=== PATIENT | female | born 1960 | race Caucasian/White ===

== ENCOUNTER 2018-12-11 15:07 | Outpatient (RCR) | payer OTHER, SELFPAY ==
--- NOTE | 2018-12-11 16:00 | PT.OIE ---
Current Diagnoses Benign paroxysmal vertigo, left ear (12/11/18) Other peripheral vertigo, left ear (12/11/18) Past Surgical History History of breast augmentation Status post colonoscopy (10/11/14) Status post colonoscopy Provider Visit Care Team Role Provider Type Toshia Tripp DO Primary Care Provider Physician Specialty: Family Practice Address: [address] [place] [id number] Email: [email or web address] Duy Ch PA-C Attending Provider Advanced Product Assembler Specialty: Medical Address: [address] [place] [address], [id number] Email: Physical Therapy Initial Evaluation PT-OP-A Visit Information Start: 12/11/18 17:27 Freq: Status: Active Protocol: Document 12/11/18 15:15 DCW (Rec: 12/12/18 08:59 DCW [id number]) Out-Patient Physical Therapy Visit Information Visit Information Visit Type Initial Evaluation Visit Start Time 15:15 Visit Stop Time 15:55 Total Visit Minutes 40 Visit Number 1 Number of RETAIL MANAGEMENT KEYHOLDER Visits 0 Evaluation Information Evaluation Date 12/11/18 PT-OP-B Current Condition Start: 12/11/18 17:27 Freq: Status: Active Protocol: Document 12/11/18 15:15 DCW (Rec: 12/12/18 08:59 DCW [id number]) Current Condition History of Current Condition Onset Date Two days Current Complaints Position-dependent vertigo History of Current Condition Pt is a 58 year old female complaining of a two day history of motion-induced vertigo. Pt reports episodes last less than a minute. Symptoms are provoked by sitting up in bed in the morning, or laying on her left side. Additionally, pt reports that at one point, she thought she may just be light -headed, because she has a history of hypotension, however when she bent forward to place her head between her knees, her symptoms became much worse, and she became nauseated and vomited. Pt reports that is was mild yesterday morning, however this morning it was so severe that she went to the walk-in clinic. Pt notes that NIDA Madsen, performed what sounds like a Laurie-Hallpike test, and reported nystagmus in the left position. Pt denies recent hearing changes, tinnitus, diplopia, dysarthria, discoordination, or decreased mentation/ consciousness. Pt denies hx of HTN, hyperlipidemia, diabetes , arrhythmia, head trauma, seizure, migraines, back/neck problems, CVA, anxiety/panic disorders, depression, or excessive smoking or drinking. Treatment Goals Patient/Caregiver Goals Eliminate position-dependent vertigo Prior Functional Status Baseline Function- ADL's Independent Baseline Function- Mobility Independent Current Functional Impairments (Reported) Functional Limitations- Other Vertigo with changes in position PT-OP-O Vestibular Start: 12/11/18 17:27 Freq: Status: Active Protocol: Document 12/11/18 15:15 DCW (Rec: 12/12/18 08:59 DCW [id number]) Vestibular Assessment Screening Tests Vestibular Artery Screen Negative Sharp-Rossana Test Negative Auditory Tests Dubose Test Negative Rinne Test Negative Air Conduction Results Equal Visual Testing Smooth Pursuits Horizontal Negative Smooth Pursuits Vertical Negative Saccades Horizontal Negative Heave Test Negative Thrust Head Negative Positional Testing Laurie-Hallpike Negative Left Negative Right Rolling Test Negative Left Negative Right Supine to Sit Negative Comments Vestibular Comments Gaze evoked nystagmus and head shake test not tested due to equipment dysfunction PT-OP-Q Treatments Start: 12/11/18 17:27 Freq: Status: Active Protocol: Document 12/11/18 15:15 DCW (Rec: 12/12/18 08:59 DCW [id number]) Canalithic Repositioning BPPV Treatment Claudia Affected Canal(s) Left posterior? Reps x1 PT-OP-T Assessment and Plan Start: 12/11/18 17:27 Freq: Status: Active Protocol: Document 12/11/18 15:15 DCW (Rec: 12/12/18 08:59 DCW [id number]) Physical Therapy Assessment Rehab Potential Rehabilitation Potential Excellent Evaluation Complexity Number of Personal Factors/Comorbidities 0 Number of Body Systems Impaired 1-2 Clinical Presentation at Evaluation Unstable Impairments Impairments Balance Vestibular Goals One Impairment Pt unable to exit bed in the morning without experiencing vertigo Short Term Goal (STG) Pt to report no vertigo with change in positions for one week STG Duration 12/26/18 Assessment Summary Assessment Pt vestibular examination entirely negative at this time . Based on pt's history and testing performed at the walk- in clinic, pt's symptoms are very strongly suggestive of left BPPV, and due to the fatigable nature of BPPV, she may just not be displaying symptoms at this time. Because her symptoms are so suggestive of BPPV, a left Claudia maneuver was performed. Pt should return to vestibular therapy within the next 1-2 weeks for retesting, and further repositioning maneuvers at that time. Pt was educated on BPPV, expectations for treatment, possible recurrence (BPPV has a ~50% recurrence rate in the five years following treatment ), and post-Claudia restrictions . Physical Therapy Plan Frequency and Duration Frequency of Treatment 1x/Week Duration of Treatment 6 weeks Plan of Care Start Date 12/11/18 Plan of Care End Date 01/22/19 Therapeutic Interventions Therapeutic Interventions Balance Training Canalithic Repositioning Neuromuscular Re-education Vestibular Rehabilitation Next Visit Focus/Plan Next Note Type Treatment Note Next Visit Plan Positional testing, CRM as indicated
--- NOTE | 2018-12-11 16:00 | PT.OPPOC ---
Current Diagnoses Benign paroxysmal vertigo, left ear (12/11/18) Other peripheral vertigo, left ear (12/11/18) Provider Visit Care Team Role Provider Type Toshia Tripp DO Primary Care Provider Physician Specialty: Family Practice Address: [address] [place] [address], [phone] Email: [email or web address] Duy Ch PA-C Attending Provider Advanced Cash Poster Specialty: Medical Address: [address] [place] [address], [id number] Email: Plan Of Care PT-OP-T Assessment and Plan Start: 12/11/18 17:27 Freq: Status: Active Protocol: Document 12/11/18 15:15 DCW (Rec: 12/12/18 08:59 DCW [id number]) Physical Therapy Assessment Rehab Potential Rehabilitation Potential Excellent Evaluation Complexity Number of Personal Factors/Comorbidities 0 Number of Body Systems Impaired 1-2 Clinical Presentation at Evaluation Unstable Impairments Impairments Balance Vestibular Goals One Impairment Pt unable to exit bed in the morning without experiencing vertigo Short Term Goal (STG) Pt to report no vertigo with change in positions for one week STG Duration 12/26/18 Assessment Summary Assessment Pt vestibular examination entirely negative at this time . Based on pt's history and testing performed at the walk- in clinic, pt's symptoms are very strongly suggestive of left BPPV, and due to the fatigable nature of BPPV, she may just not be displaying symptoms at this time. Because her symptoms are so suggestive of BPPV, a left Claudia maneuver was performed. Pt should return to vestibular therapy within the next 1-2 weeks for retesting, and further repositioning maneuvers at that time. Pt was educated on BPPV, expectations for treatment, possible recurrence (BPPV has a ~50% recurrence rate in the five years following treatment ), and post-Claudia restrictions . Physical Therapy Plan Frequency and Duration Frequency of Treatment 1x/Week Duration of Treatment 6 weeks Plan of Care Start Date 12/11/18 Plan of Care End Date 01/22/19 Therapeutic Interventions Therapeutic Interventions Balance Training Canalithic Repositioning Neuromuscular Re-education Vestibular Rehabilitation Next Visit Focus/Plan Next Note Type Treatment Note Next Visit Plan Positional testing, CRM as indicated Plan of Care Dates Plan of Care Start Date 12/11/18 Plan of Care End Date 01/22/19 Please Sign and Return: I have reviewed this Plan of Care and certify that the skilled therapy services above are required to meet the patient?s needs. Physician Signature Date Printed Name and Credentials Clinical Instructor Signature Printed Name and Credentials
--- NOTE | 2019-02-05 15:23 | PT.OPDS ---
Current Diagnoses Benign paroxysmal vertigo, left ear (12/11/18) Other peripheral vertigo, left ear (12/11/18) Provider Visit Care Team Role Provider Type Toshia Tripp DO Primary Care Provider Physician Specialty: Family Practice Address: [address] [place] [address], [phone] Email: [email or web address] Duy Ch PA-C Attending Provider Advanced Production Tester Specialty: Medical Address: [address] [place] [address], [phone] Email: Visit Number Visit Number 1 Discharge Summary PT-OP-B Current Condition Start: 12/11/18 17:27 Freq: Status: Active Protocol: Document 12/11/18 15:15 DCW (Rec: 12/12/18 08:59 DCW [id number]) Current Condition History of Current Condition Onset Date Two days Current Complaints Position-dependent vertigo History of Current Condition Pt is a 58 year old female complaining of a two day history of motion-induced vertigo. Pt reports episodes last less than a minute. Symptoms are provoked by sitting up in bed in the morning, or laying on her left side. Additionally, pt reports that at one point, she thought she may just be light -headed, because she has a history of hypotension, however when she bent forward to place her head between her knees, her symptoms became much worse, and she became nauseated and vomited. Pt reports that is was mild yesterday morning, however this morning it was so severe that she went to the walk-in clinic. Pt notes that Duy Ch, NIDA, performed what sounds like a [place]-Hallpike test, and reported nystagmus in the left position. Pt denies recent hearing changes, tinnitus, diplopia, dysarthria, discoordination, or decreased mentation/ consciousness. Pt denies hx of HTN, hyperlipidemia, diabetes , arrhythmia, head trauma, seizure, migraines, back/neck problems, CVA, anxiety/panic disorders, depression, or excessive smoking or drinking. Treatment Goals Patient/Caregiver Goals Eliminate position-dependent vertigo Prior Functional Status Baseline Function- ADL's Independent Baseline Function- Mobility Independent Current Functional Impairments (Reported) Functional Limitations- Other Vertigo with changes in position PT-OP-O Vestibular Start: 12/11/18 17:27 Freq: Status: Active Protocol: Document 12/11/18 15:15 DCW (Rec: 12/12/18 08:59 DCW [id number]) Vestibular Assessment Screening Tests Vestibular Artery Screen Negative Sharp-Rossana Test Negative Auditory Tests Dubose Test Negative Rinne Test Negative Air Conduction Results Equal Visual Testing Smooth Pursuits Horizontal Negative Smooth Pursuits Vertical Negative Saccades Horizontal Negative Heave Test Negative Thrust Head Negative Positional Testing Laurie-Hallpike Negative Left Negative Right Rolling Test Negative Left Negative Right Supine to Sit Negative Comments Vestibular Comments Gaze evoked nystagmus and head shake test not tested due to equipment dysfunction PT-OP-T Assessment and Plan Start: 12/11/18 17:27 Freq: Status: Active Protocol: Document 02/05/19 15:22 DCW (Rec: 02/05/19 15:23 DCW [id number]) Physical Therapy Assessment Goals One Impairment Pt unable to exit bed in the morning without experiencing vertigo Short Term Goal (STG) Pt to report no vertigo with change in positions for one week STG Duration 12/26/18 Assessment Summary Assessment Pt canceled all follow-up visits, stated she is feeling better and PT is no longer needed. Pt to be discharged at this time. Physical Therapy Plan Frequency and Duration Frequency of Treatment 1x/Week Duration of Treatment 6 weeks Plan of Care Start Date 12/11/18 Plan of Care End Date 01/22/19 Therapeutic Interventions Therapeutic Interventions Balance Training Canalithic Repositioning Neuromuscular Re-education Vestibular Rehabilitation Discharge Physical Therapy Discharge Reasons No Longer Attending PT Next Visit Focus/Plan Next Note Type Discharge Summary
== END 2019-02-05 15:47 | disposition home or self-care (01) ==
LOC: PHYS 15:07
PROVIDERS: PCP Family Medicine; Visit Provider Physician Assistant
DX: H81.49 Vertigo of central origin, unspecified ear (principal); H81.12 Benign paroxysmal vertigo, left ear; H81.392 Other peripheral vertigo, left ear
CPT/HCPCS: 95992; 97161

== ENCOUNTER 2024-07-16 16:48 | Inpatient (IN) | payer OTHER, SELFPAY ==
[2024-07-16] VITALS (22 sets, daily range): BP systolic 107–150; BP diastolic 56–74; PULSE 56–68; RESP 12–25; TEMP 36.7; O2SAT 93–100; BMI 25.6
--- NOTE | 2024-07-16 16:58 | EKG_ITS ---
[place] [address] [address], [place] [address] Test Date: 2024-07-16 Pat Name: Jaqueline Santiago Department: Room: Gender: Female Forklift Supervisor: [place] : 1960 Requested By: Order Number: [id number] Reading MD: Dung Chery MD Measurements Intervals [place] Rate: 68 P: 42 MS: 132 QRS: 11 QRSD: 80 T: 47 QT: 404 QTc: 429 Interpretive Statements Normal sinus rhythm Electronically Signed On 07-17-2024 7:10:35 PST by Dung Chery MD
--- NOTE | 2024-07-16 16:59 | DI.RAD.S_ITS ---
PROCEDURE: XR CHEST 1V INDICATIONS: chest pain TECHNIQUE: One view of the chest was acquired. COMPARISON: None. FINDINGS: Surgical changes and devices: None. Lungs and pleura: Lungs are clear. No pleural effusions or pneumothorax. Mediastinum: Mediastinal contours appear normal. Heart size is normal. Bones and chest wall: No suspicious bony lesions. Overlying soft tissues appear unremarkable. IMPRESSION: No acute cardiopulmonary abnormality is seen. Dictated by: Eunice Croft M.D. on 07/16/2024 at 18:01 Approved by: Eunice Croft M.D. on 07/16/2024 at 18:01
[2024-07-16] MEDS: ONDANSETRON 4 MG/2 ML INJ IV (17:19)
[2024-07-16 17:21] LABS: Prothrombin Time 11.2 SECONDS (9.4-12.5)
[2024-07-16 17:24] LABS: PTT Partial Thromboplastin Tim 37 SECONDS (25.1-36.5)
[2024-07-16 17:30] LABS: Alanine Aminotransferase 277 IU/L (<35); Albumin 4.7 g/dL (3.5-5.0); Albumin Globulin Ratio 1.5 (1.0-2.8); Alkaline Phosphatase 182 U/L (38-126); Aspartate Aminotransferase 247 IU/L (14-36); BUN Creatinine Ratio 22.8 (6-22); Bilirubin Total 0.8 mg/dL (0.2-1.3); Blood Urea Nitrogen 18 mg/dL (7-17); Calcium 9.2 mg/dL (8.4-10.2); Carbon Dioxide 30 mmol/L (22-32); Chloride 103 mmol/L (98-107); Creatine Kinase 86 U/L (30-135); Estimated Glomerular Filt Rate > 60 mL/min (>60); Globulin 3.1 g/dL (1.7-4.1); Glucose 94 mg/dL (80-110); HEMOLYSIS < 15 (0-50); Magnesium 2.1 mg/dL (1.6-2.3); Potassium 3.4 mmol/L (3.4-5.1); Sodium 140 mmol/L (137-145); Total Protein 7.8 g/dL (6.3-8.2)
[2024-07-16 17:33] LABS: Add Manual Diff / Slide Review NO; Basophils Absolute Auto 100 /uL (0-100); Basophils Percent Auto 0.4 % (0-2); Eosinophils Absolute Auto 200 /uL (0-450); Eosinophils Percent Auto 1.6 % (2-4); Hematocrit 41.4 % (36-46); Hemoglobin 13.9 g/dL (12.0-16.0); Lymphocytes Absolute Auto 3000 /uL (1100-4500); Lymphocytes Percent Auto 24.6 % (25-40); Mean Corpuscular HGB Conc 33.4 % (30-36); Mean Corpuscular Hemoglobin 29.5 PG (26-34); Mean Corpuscular Volume 88.3 fL (80-100); Monocytes Absolute Auto 600 /uL (0-900); Monocytes Percent Auto 5.3 % (3-14); Neutrophils Absolute Auto 8300 /uL (1500-7000); Neutrophils Percent Auto 68.1 % (50-75); Platelet Count 287 X10^3/uL (150-400); Red Blood Cell Count 4.69 X10^6/uL (4.0-5.2); Red Cell Distribution Width 13.8 % (11.6-14.8); White Blood Cell Count 12.1 X10^3/uL (4.5-11.0)
[2024-07-16] MEDS: ASPIRIN 81 MG CHEW TAB 324 MG PO (17:34)
[2024-07-16 17:41] LABS: NT-proBNP (BNP-Adult 18+) 35 pg/mL (<125); Troponin I < 0.012 ng/mL (0.01-0.034)
[2024-07-16 18:31] LABS: Lipase 44423 U/L (23-300)
--- NOTE | 2024-07-16 18:32 | PC.NURSE ---
iv was placed by another nurse
[2024-07-16 18:34] LABS: Urine Volume 10mL (spun)
[2024-07-16 18:35] LABS: Bacteria Urine Few (2-10); Culture Indicated Urine Specimen Cultured; RBC Urine None Seen (0-5/HPF); Squamous Epithelial Cell Urine 5-10 /HPF (0-5/HPF); WBC Urine 5-10/HPF (0-5/HPF)
--- NOTE | 2024-07-16 18:42 | DI.US.S_ITS ---
PROCEDURE: US ABDOMEN LIMITED INDICATIONS: RIGHT UPPER QUADRANT PAIN TECHNIQUE: Real-time scanning was performed of the abdominal and retroperitoneal organs, with image documentation. COMPARISON: None. FINDINGS: Liver: Liver is normal in size and homogeneous in echotexture. Gallbladder: 2 mobile stones are noted in gallbladder lumen dependent portion measures 2.4 and 1.3 cm in size. No gallbladder wall thickening. Questionable trace amount of pericholecystic fluid versus adjacent ascites fluid in gallbladder fossa. No sonographic Tena sign. Biliary ducts: Intrahepatic bile ducts are non-dilated. Extrahepatic bile duct caliber measures 8.2 mm. Normal is 6-7 mm or less in diameter, or 10 mm or less post-cholecystectomy. Pancreas: Visualized portions of the pancreas are sonographically normal. Miscellaneous: No free abdominal fluid. IMPRESSION: 1. Cholelithiasis. No definite sonographic evidence of acute cholecystitis. Questionable trace amount of pericholecystic fluid versus small amount of ascites fluid in the gallbladder fossa. 2. Mildly dilatation of common bile duct measures up to 8.2 mm in diameter. No gross choledocholithiasis. Dictated by: Tommie Obando M.D. on 07/16/2024 at 20:28 Approved by: Tommie Obando M.D. on 07/16/2024 at 20:30
--- NOTE | 2024-07-16 18:49 | ED_ITS ---
HPI - Chest Pain <Ken Samuels DO - Last Filed: 07/17/24 17:55> General Chief Complaint: Chest Pain Stated Complaint: thinks is having a heart attack Time Seen by Provider: 07/16/24 18:04 Source: patient Mode of arrival: Ambulatory Limitations: no limitations History of Present Illness HPI narrative: Patient was a 63-year-old female who is here for evaluation of upper abdominal/chest discomfort. States the symptoms started earlier this afternoon. She has had symptoms like this in the past but it was several weeks/month or so ago that was short-lived and went away on its own. She stated that she had an appointment with her new primary doctor yesterday. Had labs drawn. Was told that her liver enzymes were elevated. She denies any fever or cough. No shortness of breath. No change in bowel habits. Is having some nausea but she thinks this is because of the discomfort. She does not drink alcohol. Related Data Home Medications Medication Instructions Recorded Confirmed No Known Home Medications 07/17/24 07/17/24 Allergies Allergy/AdvReac Type Severity Reaction Status Date / Time Sulfa (Sulfonamide Allergy Severe RASH Verified 07/16/24 17:01 Antibiotics) [SULFA (SULFONAMIDE ANTIBIOTICS)] Review of Systems <Ken Samuels DO - Last Filed: 07/17/24 17:55> Review of Systems ROS Unobtainable: All systems reviewed & are unremarkable except as noted in HPI and below Patient History <Ken Samuels DO - Last Filed: 07/17/24 17:55> Medical History (Updated 07/17/24 @ 12:56 by Candelario Lewis MD) Biliary acute pancreatitis Surgical History History of breast augmentation Status post colonoscopy Status post colonoscopy (10/11/14) Social History household members: spouse Smoking Status: Never smoker Smoking Status: Never smoker Exam <Ken Samuels DO - Last Filed: 07/17/24 17:55> Initial Vital Signs Initial Vital Signs: Vital Signs Pulse Oximetry 95 07/16/24 16:56 Const General: cooperative, well developed and No ill appearing HENMT Head: normal to inspection and normocephalic Resp Effort & Inspection: normal respiratory effort Auscultation: clear to auscultation bilaterally Cardio Rate: regular rate GI Inspection: normal to inspection and non-distended Palpation: soft, No firm, No guarding and tender Skin General: no rashes or lesions noted Neuro General: patient alert, patient awake and moves all extremities Extrem General: No edema <Paigenay Valdes, DO - Last Filed: 07/17/24 13:36> Initial Vital Signs Initial Vital Signs: Vital Signs Pulse Oximetry 95 07/16/24 16:56 Course <Ken Samuels, DO - Last Filed: 07/17/24 17:55> Orders Ordered: Acetaminophen (Acetaminophen 325 Mg Tablet) 650 mg PO Q6H PRN PRN Reason: Fever/Mild Pain (1-3) Hydromorphone HCl (Hydromorphone 2 Mg Inj) 0.5 mg IV Q2HR PRN PRN Reason: Pain, Mild (1-3) Last Admin: 07/17/24 16:56 Dose: 0.5 mg Documented By: TP Sodium Chloride (Normal Saline 0.9%) 1,000 mls @ 150 mls/hr IV CONT ENEDELIA Last Infusion: 07/17/24 09:23 Dose: Infused Documented By: Admin: 07/17/24 01:35 Dose: 150 mls/hr Documented By: Infusion: 07/17/24 01:35 Dose: Infused Documented By: Admin: 07/16/24 18:56 Dose: 150 mls/hr Documented By: KjGG Sodium Chloride (Normal Saline 0.9%) 1,000 mls @ 150 mls/hr IV CONT ENEDELIA Last Admin: 07/17/24 14:06 Dose: Not Given Documented By: ESV Dextrose/Sodium Chloride (Dextrose 5%-0.9% Ns) 1,000 mls @ 100 mls/hr IV CONT ENEDELIA Last Admin: 07/17/24 14:06 Dose: 100 mls/hr Documented By: ESV Piperacillin Sod/Tazobactam (Sod 3.375 gm/ Sodium Chloride) 100 mls @ 25 mls/hr IV Q8H ENEDELIA Lactated Ringer's (Lactated Ringers) 1,000 mls @ 42 mls/hr IV CONT ENEDELIA Last Admin: 07/17/24 14:49 Dose: 42 mls/hr Documented By: CG Naloxone HCl (Naloxone 0.4 Mg/Ml Vial) 0.2 mg IV Q2MIN PRN PRN Reason: Opiate Reversal Ondansetron HCl (Ondansetron 4 Mg/2 Ml Inj) 4 mg IV Q8HR PRN PRN Reason: Nausea And Vomiting Last Admin: 07/17/24 16:52 Dose: 4 mg Documented By: TP Oxycodone HCl (Oxycodone Ir 5 Mg Tablet) 5 mg PO Q3H PRN PRN Reason: Pain, Moderate (4-6) Last Admin: 07/17/24 17:10 Dose: 5 mg Documented By: JENNIFER Discontinued Medications Acetaminophen (Acetaminophen 325 Mg Tablet) 975 mg PO NOW ONE Stop: 07/17/24 11:03 Last Admin: 07/17/24 11:10 Dose: Not Given Documented By: GLORIA Aspirin (Aspirin 81 Mg Chew Tab) 324 mg PO NOW ONE Stop: 07/16/24 17:00 Last Admin: 07/16/24 17:34 Dose: 324 mg Documented By: EDEL Bupivacaine HCl/Epinephrine Bitart (Bupivacaine 0.5% W/ Epi (Pf) 30 Ml Vial) 30 ml INJ NOW ONE Stop: 07/17/24 16:19 Hydromorphone HCl (Hydromorphone 1 Mg Inj) 1 mg IV NOW ONE Stop: 07/16/24 18:50 Last Admin: 07/16/24 18:54 Dose: 1 mg Documented By: CEDRIC Hydromorphone HCl (Hydromorphone 0.5 Mg Inj) 0.5 mg IV NOW ONE Stop: 07/16/24 21:31 Last Admin: 07/16/24 21:33 Dose: 0.5 mg Documented By: CEDRIC Hydromorphone HCl (Hydromorphone 0.5 Mg Inj) 0.5 mg IV Q2HR PRN PRN Reason: Pain, Mild (1-3) Last Admin: 07/17/24 12:13 Dose: 0.5 mg Documented By: Admin: 07/17/24 08:11 Dose: 0.5 mg Documented By: Admin: 07/17/24 03:42 Dose: 0.5 mg Documented By: Admin: 07/17/24 01:33 Dose: 0.5 mg Documented By: SHON Sodium Chloride (Normal Saline 0.9%) 1,000 mls @ 1,000 mls/hr IV BOLUS ONE Stop: 07/17/24 10:11 Last Infusion: 07/17/24 11:00 Dose: Infused Documented By: Admin: 07/17/24 09:44 Dose: 1,000 mls/hr Documented By: TC Piperacillin Sod/Tazobactam (Sod 4.5 gm/ Sodium Chloride) 100 mls @ 200 mls/hr IV NOW ONE Stop: 07/17/24 11:25 Last Infusion: 07/17/24 12:18 Dose: Infused Documented By: Admin: 07/17/24 11:40 Dose: 200 mls/hr Documented By: TC Cefazolin Sodium 1 gm/ Sodium (Chloride) 100 mls @ 200 mls/hr IV NOW ONE Stop: 07/17/24 16:22 Last Admin: 07/17/24 15:56 Dose: 200 mls/hr Documented By: Infusion: 07/17/24 15:45 Dose: Infused Documented By: Admin: 07/17/24 15:45 Dose: 200 mls/hr Documented By: Acetaminophen (Ofirmev) 1,000 mg in 100 mls @ 400 mls/hr IV NOW ONE Stop: 07/17/24 16:19 Last Admin: 07/17/24 16:00 Dose: 400 mls/hr Documented By: Iopamidol (Iopamidol 30 Ml Vial) 30 ml INJ NOW ONE Stop: 07/17/24 16:07 Last Admin: 07/17/24 16:06 Dose: 15 ml Documented By: YADI Lorazepam (Lorazepam 0.5 Mg Tablet) 1 mg PO NOW ONE Stop: 07/17/24 08:05 Ondansetron HCl (Ondansetron 4 Mg/2 Ml Inj) 4 mg IV NOW ONE Stop: 07/16/24 17:13 Last Admin: 07/16/24 17:19 Dose: 4 mg Documented By: EDEL Ondansetron HCl (Ondansetron 4 Mg/2 Ml Inj) 4 mg IV Q4HR PRN PRN Reason: Nausea And Vomiting Ondansetron HCl (Ondansetron 4 Mg/2 Ml Inj) 4 mg IV NOW ONE Stop: 07/17/24 16:49 Oxycodone HCl (Oxycodone Ir 5 Mg Tablet) 5 mg PO NOW ONE Stop: 07/17/24 16:50 Last Admin: 07/17/24 16:57 Dose: 5 mg Documented By: TP Vital Signs Vital signs: Vital Signs - 8 hr 07/17/24 10:00 07/17/24 10:05 07/17/24 10:30 Pulse Rate Blood Pressure 85/47 L 86/49 L 89/53 L Pulse Oximetry 07/17/24 11:00 07/17/24 11:05 07/17/24 11:25 Pulse Rate 64 Blood Pressure 87/50 L 93/51 L Pulse Oximetry 97 07/17/24 11:25 07/17/24 11:30 07/17/24 11:30 Pulse Rate 65 60 Blood Pressure 89/50 L Pulse Oximetry 98 97 <Paige Valdes DO - Last Filed: 07/17/24 13:36> Orders Ordered: Acetaminophen (Acetaminophen 325 Mg Tablet) 650 mg PO Q6H PRN PRN Reason: Fever/Mild Pain (1-3) Hydromorphone HCl (Hydromorphone 2 Mg Inj) 0.5 mg IV Q2HR PRN PRN Reason: Pain, Mild (1-3) Last Admin: 07/17/24 16:56 Dose: 0.5 mg Documented By: TP Sodium Chloride (Normal Saline 0.9%) 1,000 mls @ 150 mls/hr IV CONT ENEDELIA Last Infusion: 07/17/24 09:23 Dose: Infused Documented By: Admin: 07/17/24 01:35 Dose: 150 mls/hr Documented By: Infusion: 07/17/24 01:35 Dose: Infused Documented By: Admin: 07/16/24 18:56 Dose: 150 mls/hr Documented By: ZGG Sodium Chloride (Normal Saline 0.9%) 1,000 mls @ 150 mls/hr IV CONT ENEDELIA Last Admin: 07/17/24 14:06 Dose: Not Given Documented By: ESV Dextrose/Sodium Chloride (Dextrose 5%-0.9% Ns) 1,000 mls @ 100 mls/hr IV CONT ENEDELIA Last Admin: 07/17/24 14:06 Dose: 100 mls/hr Documented By: ESV Piperacillin Sod/Tazobactam (Sod 3.375 gm/ Sodium Chloride) 100 mls @ 25 mls/hr IV Q8H ENEDELIA Lactated Ringer's (Lactated Ringers) 1,000 mls @ 42 mls/hr IV CONT ENEDELIA Last Admin: 07/17/24 14:49 Dose: 42 mls/hr Documented By: MYA Naloxone HCl (Naloxone 0.4 Mg/Ml Vial) 0.2 mg IV Q2MIN PRN PRN Reason: Opiate Reversal Ondansetron HCl (Ondansetron 4 Mg/2 Ml Inj) 4 mg IV Q8HR PRN PRN Reason: Nausea And Vomiting Last Admin: 07/17/24 16:52 Dose: 4 mg Documented By: TP Oxycodone HCl (Oxycodone Ir 5 Mg Tablet) 5 mg PO Q3H PRN PRN Reason: Pain, Moderate (4-6) Last Admin: 07/17/24 17:10 Dose: 5 mg Documented By: TP Discontinued Medications Acetaminophen (Acetaminophen 325 Mg Tablet) 975 mg PO NOW ONE Stop: 07/17/24 11:03 Last Admin: 07/17/24 11:10 Dose: Not Given Documented By: GLORIA Aspirin (Aspirin 81 Mg Chew Tab) 324 mg PO NOW ONE Stop: 07/16/24 17:00 Last Admin: 07/16/24 17:34 Dose: 324 mg Documented By: EDEL Bupivacaine HCl/Epinephrine Bitart (Bupivacaine 0.5% W/ Epi (Pf) 30 Ml Vial) 30 ml INJ NOW ONE Stop: 07/17/24 16:19 Hydromorphone HCl (Hydromorphone 1 Mg Inj) 1 mg IV NOW ONE Stop: 07/16/24 18:50 Last Admin: 07/16/24 18:54 Dose: 1 mg Documented By: CEDRIC Hydromorphone HCl (Hydromorphone 0.5 Mg Inj) 0.5 mg IV NOW ONE Stop: 07/16/24 21:31 Last Admin: 07/16/24 21:33 Dose: 0.5 mg Documented By: CEDRIC Hydromorphone HCl (Hydromorphone 0.5 Mg Inj) 0.5 mg IV Q2HR PRN PRN Reason: Pain, Mild (1-3) Last Admin: 07/17/24 12:13 Dose: 0.5 mg Documented By: Admin: 07/17/24 08:11 Dose: 0.5 mg Documented By: Admin: 07/17/24 03:42 Dose: 0.5 mg Documented By: Admin: 07/17/24 01:33 Dose: 0.5 mg Documented By: SHON Sodium Chloride (Normal Saline 0.9%) 1,000 mls @ 1,000 mls/hr IV BOLUS ONE Stop: 07/17/24 10:11 Last Infusion: 07/17/24 11:00 Dose: Infused Documented By: Admin: 07/17/24 09:44 Dose: 1,000 mls/hr Documented By: GLORIA Piperacillin Sod/Tazobactam (Sod 4.5 gm/ Sodium Chloride) 100 mls @ 200 mls/hr IV NOW ONE Stop: 07/17/24 11:25 Last Infusion: 07/17/24 12:18 Dose: Infused Documented By: Admin: 07/17/24 11:40 Dose: 200 mls/hr Documented By: TC Cefazolin Sodium 1 gm/ Sodium (Chloride) 100 mls @ 200 mls/hr IV NOW ONE Stop: 07/17/24 16:22 Last Admin: 07/17/24 15:56 Dose: 200 mls/hr Documented By: Infusion: 07/17/24 15:45 Dose: Infused Documented By: Admin: 07/17/24 15:45 Dose: 200 mls/hr Documented By: AB Acetaminophen (Ofirmev) 1,000 mg in 100 mls @ 400 mls/hr IV NOW ONE Stop: 07/17/24 16:19 Last Admin: 07/17/24 16:00 Dose: 400 mls/hr Documented By: AB Iopamidol (Iopamidol 30 Ml Vial) 30 ml INJ NOW ONE Stop: 07/17/24 16:07 Last Admin: 07/17/24 16:06 Dose: 15 ml Documented By: YADI Lorazepam (Lorazepam 0.5 Mg Tablet) 1 mg PO NOW ONE Stop: 07/17/24 08:05 Ondansetron HCl (Ondansetron 4 Mg/2 Ml Inj) 4 mg IV NOW ONE Stop: 07/16/24 17:13 Last Admin: 07/16/24 17:19 Dose: 4 mg Documented By: EDEL Ondansetron HCl (Ondansetron 4 Mg/2 Ml Inj) 4 mg IV Q4HR PRN PRN Reason: Nausea And Vomiting Ondansetron HCl (Ondansetron 4 Mg/2 Ml Inj) 4 mg IV NOW ONE Stop: 07/17/24 16:49 Oxycodone HCl (Oxycodone Ir 5 Mg Tablet) 5 mg PO NOW ONE Stop: 07/17/24 16:50 Last Admin: 07/17/24 16:57 Dose: 5 mg Documented By: TP Vital Signs Vital signs: Vital Signs - 8 hr 07/17/24 10:00 07/17/24 10:05 07/17/24 10:30 Pulse Rate Blood Pressure 85/47 L 86/49 L 89/53 L Pulse Oximetry 07/17/24 11:00 07/17/24 11:05 07/17/24 11:25 Pulse Rate 64 Blood Pressure 87/50 L 93/51 L Pulse Oximetry 97 07/17/24 11:25 07/17/24 11:30 07/17/24 11:30 Pulse Rate 65 60 Blood Pressure 89/50 L Pulse Oximetry 98 97 MDM - Chest Pain <Ken Samuels DO - Last Filed: 07/17/24 17:55> Lab Data Attestation: I reviewed the patient's lab results. 07/17/24 08:00 07/17/24 08:00 Labs: Lab Results 07/16/24 07/16/24 07/16/24 Range/Units 17:05 18:18 19:14 WBC 12.1 H (4.5-11.0) X10^3/uL RBC 4.69 (4.0-5.2) X10^6/uL Hgb 13.9 (12.0-16.0) g/dL Hct 41.4 (36-46) % MCV 88.3 (80-100) fL MCH 29.5 (26-34) PG MCHC 33.4 (30-36) % RDW 13.8 (11.6-14.8) % Plt Count 287 (150-400) X10^3/uL Neut % (Auto) 68.1 (50-75) % Lymph % (Auto) 24.6 L (25-40) % Mcdonald % (Auto) 5.3 (3-14) % Eos % (Auto) 1.6 L (2-4) % Baso % (Auto) 0.4 (0-2) % Neut # (Auto) 8300 H (7014-2410) /uL Lymph # (Auto) 3000 (6677-8966) /uL Mcdonald # (Auto) 600 (0-900) /uL Eos # (Auto) 200 (0-450) /uL Baso # (Auto) 100 (0-100) /uL PT 11.2 (9.4-12.5) SECONDS INR 1.0 (0.9-1.3) APTT 37 H (25.1-36.5) SECONDS Sodium 140 (137-145) mmol/L Potassium 3.4 (3.4-5.1) mmol/L Chloride 103 (98-107) mmol/L Carbon Dioxide 30 (22-32) mmol/L BUN 18 H (7-17) mg/dL Creatinine 0.79 (0.52-1.04) mg/dL Estimated GFR > 60 (>60) mL/min BUN/Creatinine Ratio 22.8 H (6-22) Glucose 94 (80-110) mg/dL Calcium 9.2 (8.4-10.2) mg/dL Magnesium 2.1 (1.6-2.3) mg/dL Total Bilirubin 0.8 (0.2-1.3) mg/dL AST 247 H (14-36) IU/L ALT 277 H (<35) IU/L Alkaline Phosphatase 182 H (38-126) U/L Total Creatine Kinase 86 (30-135) U/L Troponin I < 0.012 (0.01-0.034) ng/mL NT-Pro-B Natriuret Pep 35 (<125) pg/mL Total Protein 7.8 (6.3-8.2) g/dL Albumin 4.7 (3.5-5.0) g/dL Globulin 3.1 (1.7-4.1) g/dL Albumin/Globulin Ratio 1.5 (1.0-2.8) Lipase 89099 H (23-300) U/L Urine RBC None seen (0-5/HPF) Urine WBC 5-10/hpf H (0-5/HPF) Ur Squamous Epith Cells 5-10 /hpf H (0-5/HPF) Urine Bacteria Few (2-10) H (None) Ur Culture Indicated? Specimen cultured Vol Urine Centrifuged 10ml (spun) Acetaminophen < 10 (10-30) ug/mL Ethyl Alcohol < 10 ( - 10) mg/dL 07/17/24 Range/Units 08:00 WBC 9.9 (4.5-11.0) X10^3/uL RBC 3.92 L (4.0-5.2) X10^6/uL Hgb 11.8 L (12.0-16.0) g/dL Hct 34.8 L (36-46) % MCV 88.6 (80-100) fL MCH 30.2 (26-34) PG MCHC 34.1 (30-36) % RDW 13.5 (11.6-14.8) % Plt Count 243 (150-400) X10^3/uL Neut % (Auto) 75.0 (50-75) % Lymph % (Auto) 18.3 L (25-40) % Mcdonald % (Auto) 5.8 (3-14) % Eos % (Auto) 0.6 L (2-4) % Baso % (Auto) 0.3 (0-2) % Neut # (Auto) 7500 H (6953-7274) /uL Lymph # (Auto) 1800 (4329-5632) /uL Mcdonald # (Auto) 600 (0-900) /uL Eos # (Auto) 100 (0-450) /uL Baso # (Auto) 0 (0-100) /uL PT (9.4-12.5) SECONDS INR (0.9-1.3) APTT (25.1-36.5) SECONDS Sodium 136 L (137-145) mmol/L Potassium 3.7 (3.4-5.1) mmol/L Chloride 109 H (98-107) mmol/L Carbon Dioxide 22 (22-32) mmol/L BUN 14 (7-17) mg/dL Creatinine 0.62 (0.52-1.04) mg/dL Estimated GFR > 60 (>60) mL/min BUN/Creatinine Ratio 22.6 H (6-22) Glucose 98 (80-110) mg/dL Calcium 8.3 L (8.4-10.2) mg/dL Magnesium (1.6-2.3) mg/dL Total Bilirubin 0.9 (0.2-1.3) mg/dL AST 180 H (14-36) IU/L ALT 300 H (<35) IU/L Alkaline Phosphatase 161 H (38-126) U/L Total Creatine Kinase (30-135) U/L Troponin I (0.01-0.034) ng/mL NT-Pro-B Natriuret Pep (<125) pg/mL Total Protein 6.1 L (6.3-8.2) g/dL Albumin 3.7 (3.5-5.0) g/dL Globulin 2.4 (1.7-4.1) g/dL Albumin/Globulin Ratio 1.5 (1.0-2.8) Lipase 8838 H D (23-300) U/L Urine RBC (0-5/HPF) Urine WBC (0-5/HPF) Ur Squamous Epith Cells (0-5/HPF) Urine Bacteria (None) Ur Culture Indicated? Vol Urine Centrifuged Acetaminophen (10-30) ug/mL Ethyl Alcohol ( - 10) mg/dL Urine Dip Bedside Urine Glucose Negative Bedside Urine Bilirubin - Negative Bedside Urine Ketone - Negative Urine Specific Beeler 1.005 Bedside Urine Occult Blood - Negative Bedside Urine pH 7.0 Bedside Urine Protein - Negative Bedside Urine Urobilinogen - Negative Bedside Urine Nitrite - Negative Bedside Urine Leukocytes +++ 500 Esterase Imaging Data Chest x-ray: Radiologist's Impression: PROCEDURE: XR CHEST 1V INDICATIONS: chest pain TECHNIQUE: One view of the chest was acquired. COMPARISON: None. FINDINGS: Surgical changes and devices: None. Lungs and pleura: Lungs are clear. No pleural effusions or pneumothorax. Mediastinum: Mediastinal contours appear normal. Heart size is normal. Bones and chest wall: No suspicious bony lesions. Overlying soft tissues appear unremarkable. IMPRESSION: No acute cardiopulmonary abnormality is seen. US - abdomen: Radiologist's Impression: PROCEDURE: US ABDOMEN LIMITED INDICATIONS: RIGHT UPPER QUADRANT PAIN TECHNIQUE: Real-time scanning was performed of the abdominal and retroperitoneal organs, with image documentation. COMPARISON: None. FINDINGS: Liver: Liver is normal in size and homogeneous in echotexture. Gallbladder: 2 mobile stones are noted in gallbladder lumen dependent portion measures 2.4 and 1.3 cm in size. No gallbladder wall thickening. Questionable trace amount of pericholecystic fluid versus adjacent ascites fluid in gallbladder fossa. No sonographic Tena sign. Biliary ducts: Intrahepatic bile ducts are non-dilated. Extrahepatic bile duct caliber measures 8.2 mm. Normal is 6-7 mm or less in diameter, or 10 mm or less post-cholecystectomy. Pancreas: Visualized portions of the pancreas are sonographically normal. Miscellaneous: No free abdominal fluid. IMPRESSION: 1. Cholelithiasis. No definite sonographic evidence of acute cholecystitis. Questionable trace amount of pericholecystic fluid versus small amount of ascites fluid in the gallbladder fossa. 2. Mildly dilatation of common bile duct measures up to 8.2 mm in diameter. No gross choledocholithiasis. ECG Data Attestation: I personally reviewed and interpreted this ECG as follows: Interpretation: Sinus rhythm Ventricular rate is 68 Normal axis Normal QRS Normal QTC No ST T wave changes MDM Narrative Medical decision making narrative: Patient has a elevated lipase and elevated LFTs. Bilirubin is unremarkable. Her physical exam and labs are consistent with an acute pancreatitis. Right upper quadrant ultrasound shows cholelithiasis without signs of an acute cholecystitis. There are no definitive findings for an acute choledocholithiasis. I did discuss the case with Dr. Virk hospitalist on-call who recommended a MRCP before admission to confirm but no need for ERCP. I am unable to obtain an MRCP at this time a day so patient will stay in the emergency department overnight and an MRCP is ordered. Repeat labs ordered as well. Will hold on any antibiotics for now. Will make NPO. Fluids administered. Care turned over to day provider to follow up on MRCP and disposition. <Paige Valdes, DO - Last Filed: 07/17/24 13:36> Lab Data Labs: Lab Results 07/16/24 07/16/24 07/16/24 Range/Units 17:05 18:18 19:14 WBC 12.1 H (4.5-11.0) X10^3/uL RBC 4.69 (4.0-5.2) X10^6/uL Hgb 13.9 (12.0-16.0) g/dL Hct 41.4 (36-46) % MCV 88.3 (80-100) fL MCH 29.5 (26-34) PG MCHC 33.4 (30-36) % RDW 13.8 (11.6-14.8) % Plt Count 287 (150-400) X10^3/uL Neut % (Auto) 68.1 (50-75) % Lymph % (Auto) 24.6 L (25-40) % Mcdonald % (Auto) 5.3 (3-14) % Eos % (Auto) 1.6 L (2-4) % Baso % (Auto) 0.4 (0-2) % Neut # (Auto) 8300 H (9179-1756) /uL Lymph # (Auto) 3000 (5914-2433) /uL Mcdonald # (Auto) 600 (0-900) /uL Eos # (Auto) 200 (0-450) /uL Baso # (Auto) 100 (0-100) /uL PT 11.2 (9.4-12.5) SECONDS INR 1.0 (0.9-1.3) APTT 37 H (25.1-36.5) SECONDS Sodium 140 (137-145) mmol/L Potassium 3.4 (3.4-5.1) mmol/L Chloride 103 (98-107) mmol/L Carbon Dioxide 30 (22-32) mmol/L BUN 18 H (7-17) mg/dL Creatinine 0.79 (0.52-1.04) mg/dL Estimated GFR > 60 (>60) mL/min BUN/Creatinine Ratio 22.8 H (6-22) Glucose 94 (80-110) mg/dL Calcium 9.2 (8.4-10.2) mg/dL Magnesium 2.1 (1.6-2.3) mg/dL Total Bilirubin 0.8 (0.2-1.3) mg/dL AST 247 H (14-36) IU/L ALT 277 H (<35) IU/L Alkaline Phosphatase 182 H (38-126) U/L Total Creatine Kinase 86 (30-135) U/L Troponin I < 0.012 (0.01-0.034) ng/mL NT-Pro-B Natriuret Pep 35 (<125) pg/mL Total Protein 7.8 (6.3-8.2) g/dL Albumin 4.7 (3.5-5.0) g/dL Globulin 3.1 (1.7-4.1) g/dL Albumin/Globulin Ratio 1.5 (1.0-2.8) Lipase 56162 H (23-300) U/L Urine RBC None seen (0-5/HPF) Urine WBC 5-10/hpf H (0-5/HPF) Ur Squamous Epith Cells 5-10 /hpf H (0-5/HPF) Urine Bacteria Few (2-10) H (None) Ur Culture Indicated? Specimen cultured Vol Urine Centrifuged 10ml (spun) Acetaminophen < 10 (10-30) ug/mL Ethyl Alcohol < 10 ( - 10) mg/dL 07/17/24 Range/Units 08:00 WBC 9.9 (4.5-11.0) X10^3/uL RBC 3.92 L (4.0-5.2) X10^6/uL Hgb 11.8 L (12.0-16.0) g/dL Hct 34.8 L (36-46) % MCV 88.6 (80-100) fL MCH 30.2 (26-34) PG MCHC 34.1 (30-36) % RDW 13.5 (11.6-14.8) % Plt Count 243 (150-400) X10^3/uL Neut % (Auto) 75.0 (50-75) % Lymph % (Auto) 18.3 L (25-40) % Mcdonald % (Auto) 5.8 (3-14) % Eos % (Auto) 0.6 L (2-4) % Baso % (Auto) 0.3 (0-2) % Neut # (Auto) 7500 H (0219-1415) /uL Lymph # (Auto) 1800 (1513-0049) /uL Mcdonald # (Auto) 600 (0-900) /uL Eos # (Auto) 100 (0-450) /uL Baso # (Auto) 0 (0-100) /uL PT (9.4-12.5) SECONDS INR (0.9-1.3) APTT (25.1-36.5) SECONDS Sodium 136 L (137-145) mmol/L Potassium 3.7 (3.4-5.1) mmol/L Chloride 109 H (98-107) mmol/L Carbon Dioxide 22 (22-32) mmol/L BUN 14 (7-17) mg/dL Creatinine 0.62 (0.52-1.04) mg/dL Estimated GFR > 60 (>60) mL/min BUN/Creatinine Ratio 22.6 H (6-22) Glucose 98 (80-110) mg/dL Calcium 8.3 L (8.4-10.2) mg/dL Magnesium (1.6-2.3) mg/dL Total Bilirubin 0.9 (0.2-1.3) mg/dL AST 180 H (14-36) IU/L ALT 300 H (<35) IU/L Alkaline Phosphatase 161 H (38-126) U/L Total Creatine Kinase (30-135) U/L Troponin I (0.01-0.034) ng/mL NT-Pro-B Natriuret Pep (<125) pg/mL Total Protein 6.1 L (6.3-8.2) g/dL Albumin 3.7 (3.5-5.0) g/dL Globulin 2.4 (1.7-4.1) g/dL Albumin/Globulin Ratio 1.5 (1.0-2.8) Lipase 8838 H D (23-300) U/L Urine RBC (0-5/HPF) Urine WBC (0-5/HPF) Ur Squamous Epith Cells (0-5/HPF) Urine Bacteria (None) Ur Culture Indicated? Vol Urine Centrifuged Acetaminophen (10-30) ug/mL Ethyl Alcohol ( - 10) mg/dL Urine Dip Bedside Urine Glucose Negative Bedside Urine Bilirubin - Negative Bedside Urine Ketone - Negative Urine Specific Beeler 1.005 Bedside Urine Occult Blood - Negative Bedside Urine pH 7.0 Bedside Urine Protein - Negative Bedside Urine Urobilinogen - Negative Bedside Urine Nitrite - Negative Bedside Urine Leukocytes +++ 500 Esterase Imaging Data MRCP : Radiologist's Impression: Close Abdomen MRI (Signed) Patrick Rosales - 07/16/24 Abdomen Ultrasound (Signed) Tommie Obando - 07/16/24 Chest X-Ray (Signed) Eunice Croft - 07/16/24 [place] [address] Magnetic Resonance Report Signed Patient: Jaqueline Santiago MR#: [id number] : 1960 Acct:[id number] Age/Sex: 63 / F Date of Service: 07/16/24 Loc: ED Accession Number: [id number] Procedure: MR abdomen wo con Ordering Provider: Ken Samuels D.O. PROCEDURE: MR ABDOMEN WO CON INDICATIONS: Eval for common bile duct stone TECHNIQUE: Coronal HASTE through the abdomen, axial 2-D FLASH in- and [id number], and breath-hold T2 FSE with fat saturation through the biliary system and pancreas. Oblique coronal and axial thin-slice HASTE, radial thick-slab HASTE centered on the extrahepatic bile ducts. Intravenous secretin: Not requested. COMPARISON: [facility], , US ABDOMEN LIMITED, 07/16/2024, 19:29. FINDINGS: Image quality: Motion degradation is present Lower chest: Unremarkable lung bases Liver: Unremarkable Gallbladder and biliary system: Cholelithiasis. The CBD is nondistended by size criteria at 5-6 mm. Questionable sludge versus tiny stones at the distal CBD near the ampulla seen on image 3/16. Motion artifact limits evaluation on other sequences. Pancreas: No ductal dilation. There is moderate edema is seen surrounding the pancreatic tail and extending into the left upper quadrant. Spleen: Nonenlarged Adrenals: No discrete nodules Kidneys: No solid mass or hydronephrosis. There are small cysts. Vessels and lymph nodes: No abdominal aortic aneurysm. No pathologic lymphadenopathy by size criteria Bowel and peritoneum: No evidence of small bowel obstruction.. No pathologic ascites elsewhere Body wall: Unremarkable Bones: No acute or suspicious osseous finding. IMPRESSION: Cholelithiasis. Questionable sludge versus small gallstones at the distal CBD, which is technically not distended. Correlate LFTs and possible ERCP. This is seen on series 3/16, but not confirmed on other sequences due to motion artifact Moderate edema surrounding pancreas tail and left upper quadrant, correlate lipase for pancreatitis. Dictated by: Patrick Rosales M.D. on 07/17/2024 at 9:52 Approved by: Patrick Rosales M.D. on 07/17/2024 at 9:59 MDM Narrative Medical decision making narrative: Patient has a elevated lipase and elevated LFTs. Bilirubin is unremarkable. Her physical exam and labs are consistent with an acute pancreatitis. Right upper quadrant ultrasound shows cholelithiasis without signs of an acute cholecystitis. There are no definitive findings for an acute choledocholithiasis. I did discuss the case with Dr. [facility] hospitalist on-call who recommended a MRCP before admission to confirm but no need for ERCP. I am unable to obtain an MRCP at this time a day so patient will stay in the emergency department overnight and an MRCP is ordered. Repeat labs ordered as well. Will hold on any antibiotics for now. Will make NPO. Fluids administered. Care turned over to day provider to follow up on MRCP and disposition. 07/17/2024 Dr. Valdes patient signed out to myself by Dr. Samuels. Patient was seen and evaluated by myself she is feels improved from last night states her pain is currently improved she was ambulating in the room. Has a little bit of a low blood pressure but she notes that she sometimes has soft blood pressures at baseline. Has not had any fevers overnight awaiting MRCP. Patient's labs and imaging reviewed. MRCP shows cholelithiasis questionable sludge versus small gallstones distal CBD which is technically not distended correlate LFTs and possible ERCP seen on series 316 but not confirmed on other sequences due to motion artifact moderate edema surrounding pancreas tail and left upper quadrant correlating lipase for pancreatitis. Patient's labs show down trending lipase from 44,008 T8 100 AST ALT alk-phos are still elevated bilirubin has not elevated white count has improved. Patient's blood pressure has dropped but she was continued to feel well and been ambulatory throughout the department was given additional L bolus. 1018: Paged Dr. Lewis general surgery to see if patient is felt appropriate for here and potential intraoperative cholangiogram versus transfer for ERCP. Spoke with Dr. Lewis 1124: Would like to keep patient here reviewed patient's labs and MRCP findings plan for OR with intraoperative cholangiogram would like us to cover with a course of antibiotics asked if hospitalist can also see patient. Agreeable with Meghan. Dr. Lewis states consult versus admission to hospitalist as acceptable. Did discuss she has been hypotensive but walking labs throughout the emergency department overall feeling very well. 1133: Spoke with Dr. Serra accepts with plan for Dr. Lewis to see. Reviewed all findings above as well as patient's vital signs, workup and plan with General surgery. Patient has been ambulating in department. Reviewed MRCP findings with with patient and plan for general surgery. Dr. Lewis did see patient in the department. Discharge Plan Departure Patient Disposition: Admitted As Inpatient Clinical Impression: Pancreatitis, Transaminitis, Cholelithiasis Admit Date/Time: 07/17/24 11:33 Admit Provider: Chance Serra
[2024-07-16] MEDS: HYDROMORPHONE 1 MG INJ IV (18:54)
[2024-07-16] MEDS: SODIUM CHLORIDE 0.9% 1,000 ML 150 ML IV (18:56)
[2024-07-16 19:31] LABS: Ethanol (ETOH) < 10 mg/dL
[2024-07-16 19:32] LABS: Acetaminophen < 10 ug/mL (10-30)
[2024-07-16] MEDS: HYDROMORPHONE 0.5 MG INJ IV (21:33)
--- NOTE | 2024-07-16 21:42 | DI.MRI.S_ITS ---
PROCEDURE: MR ABDOMEN WO CON INDICATIONS: Eval for common bile duct stone TECHNIQUE: Coronal HASTE through the abdomen, axial 2-D FLASH in- and [id number], and breath-hold T2 FSE with fat saturation through the biliary system and pancreas. Oblique coronal and axial thin-slice HASTE, radial thick-slab HASTE centered on the extrahepatic bile ducts. Intravenous secretin: Not requested. COMPARISON: [facility], , ABDOMEN LIMITED, 07/16/2024, 19:29. FINDINGS: Image quality: Motion degradation is present Lower chest: Unremarkable lung bases Liver: Unremarkable Gallbladder and biliary system: Cholelithiasis. The CBD is nondistended by size criteria at 5-6 mm. Questionable sludge versus tiny stones at the distal CBD near the ampulla seen on image 3/16. Motion artifact limits evaluation on other sequences. Pancreas: No ductal dilation. There is moderate edema is seen surrounding the pancreatic tail and extending into the left upper quadrant. Spleen: Nonenlarged Adrenals: No discrete nodules Kidneys: No solid mass or hydronephrosis. There are small cysts. Vessels and lymph nodes: No abdominal aortic aneurysm. No pathologic lymphadenopathy by size criteria Bowel and peritoneum: No evidence of small bowel obstruction.. No pathologic ascites elsewhere Body wall: Unremarkable Bones: No acute or suspicious osseous finding. IMPRESSION: Cholelithiasis. Questionable sludge versus small gallstones at the distal CBD, which is technically not distended. Correlate LFTs and possible ERCP. This is seen on series 3/16, but not confirmed on other sequences due to motion artifact Moderate edema surrounding pancreas tail and left upper quadrant, correlate lipase for pancreatitis. Dictated by: Patrick Rosales M.D. on 07/17/2024 at 9:52 Approved by: Patrick Rosales M.D. on 07/17/2024 at 9:59
[2024-07-17] VITALS (44 sets, daily range): BP systolic 85–112; BP diastolic 47–68; PULSE 54–81; RESP 11–22; TEMP 36.4–37.2; O2SAT 92–99; BMI 25.6
--- NOTE | 2024-07-17 | PATH_ITS ---
[facility] Accession Number: [id number] No. of containers..01 Tissue . 01 Material submitted: . gallbladder - GALLBLADDER AND CONTENTS . 01 Diagnosis: GALLBLADDER AND CONTENTS, CHOLECYSTECTOMY: Mild chronic calculous cholecystitis and reactive changes. Negative for dysplasia and malignancy. CARLIE 07/21/2024 1007 Local . 01 Electronically signed: . Ander uD MD, Pathologist NPI- [id number] . 01 Gross description: . Received in formalin with two identifiers and gallbladder, is an intact gallbladder 6.5 x 3.4 x 3.4 cm with an unremarkable external surface. The cystic duct margin is inked blue, and no pericystic lymph node is identified. The lumen contains two yellow bosselated calculi up to 1.5 cm in greatest dimension not grossly obstructing the cystic duct and admixed with dark green viscous bile. The mucosa is green and velvety with no yellow areas or discoloration, polyps, or lesions identified. The zapien average 0.2 cm thick. Irrigation Pump Installer sections to include the cystic duct margin and full thickness sections are submitted in cassette A1. ([id number]) /CARLIE 07/18/2024 2229 Local . 01 Pathologist provided ICD-10: K85.10 . 01 CPT . 576249 Specimen Comment: A courtesy copy of this report has been sent to [facility] Pathology Performed at: [address] [address], [place], [place] [id number] MD Adrian Hammond MD Phone: [phone]
--- NOTE | 2024-07-17 | DI.RAD.S_ITS ---
PROCEDURE: XR CHOLANGIOGRAM OPERATIVE INDICATIONS: LAP GINO COMPARISON: [facility], MR, MR ABDOMEN WO CON, 07/17/2024, 8:10. FINDINGS: Biliary ducts: The surgeon injected contrast into the biliary ducts after cannulation of the cystic duct stump. Visualized intra- and extrahepatic bile ducts are normal in caliber, without strictures. No intraluminal filling defects to suggest retained ductal stones or sludge. No evidence for iatrogenic ductal injury. Duodenum: Contrast flows promptly through the sphincter of Oddi into the duodenum, which appears normal in caliber. IMPRESSION: Intraoperative guidance provided. No filling defect demonstrated. Dictated by: Emile Loco M.D. on 07/17/2024 at 16:33 Approved by: Emile Loco M.D. on 07/17/2024 at 16:34
--- NOTE | 2024-07-17 01:25 | PC.NURSE ---
pt up walking around room
[2024-07-17] MEDS: HYDROMORPHONE 0.5 MG INJ IV ×5 (01:33→19:28)
[2024-07-17] MEDS: SODIUM CHLORIDE 0.9% 1,000 ML 150 ML IV (01:35)
[2024-07-17 08:11] LABS: Add Manual Diff / Slide Review NO; Basophils Absolute Auto 0 /uL (0-100); Basophils Percent Auto 0.3 % (0-2); Eosinophils Absolute Auto 100 /uL (0-450); Eosinophils Percent Auto 0.6 % (2-4); Hematocrit 34.8 % (36-46); Hemoglobin 11.8 g/dL (12.0-16.0); Lymphocytes Absolute Auto 1800 /uL (1100-4500); Lymphocytes Percent Auto 18.3 % (25-40); Mean Corpuscular HGB Conc 34.1 % (30-36); Mean Corpuscular Hemoglobin 30.2 PG (26-34); Mean Corpuscular Volume 88.6 fL (80-100); Monocytes Absolute Auto 600 /uL (0-900); Monocytes Percent Auto 5.8 % (3-14); Neutrophils Absolute Auto 7500 /uL (1500-7000); Platelet Count 243 X10^3/uL (150-400); Red Blood Cell Count 3.92 X10^6/uL (4.0-5.2); Red Cell Distribution Width 13.5 % (11.6-14.8); White Blood Cell Count 9.9 X10^3/uL (4.5-11.0)
[2024-07-17 08:32] LABS: Alanine Aminotransferase 300 IU/L (<35); Albumin 3.7 g/dL (3.5-5.0); Albumin Globulin Ratio 1.5 (1.0-2.8); Alkaline Phosphatase 161 U/L (38-126); Aspartate Aminotransferase 180 IU/L (14-36); BUN Creatinine Ratio 22.6 (6-22); Bilirubin Total 0.9 mg/dL (0.2-1.3); Blood Urea Nitrogen 14 mg/dL (7-17); Calcium 8.3 mg/dL (8.4-10.2); Carbon Dioxide 22 mmol/L (22-32); Chloride 109 mmol/L (98-107); Estimated Glomerular Filt Rate > 60 mL/min (>60); Globulin 2.4 g/dL (1.7-4.1); Glucose 98 mg/dL (80-110); HEMOLYSIS < 15 (0-50); Potassium 3.7 mmol/L (3.4-5.1); Sodium 136 mmol/L (137-145); Total Protein 6.1 g/dL (6.3-8.2)
[2024-07-17 08:45] LABS: Lipase 8838 U/L (23-300)
[2024-07-17] MEDS: SODIUM CHLORIDE 0.9% 1,000 ML 1000 ML IV (09:44)
[2024-07-17] MEDS: PIPERACILLIN/TAZO 4.5 GM in SODIUM CHLORIDE 0.9% 100 ML IV (11:40)
--- NOTE | 2024-07-17 12:31 | P.HP_ITS ---
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 She presents today with epigastric abdominal pain consistent with a gallbladder attack which began yesterday but failed to improve. She developed progressive epigastric abdominal pain and was worried about a heart attack. In the ED she was found to have a significant elevation of her lipase consistent with gallstone pancreatitis. She also had elevated transaminases and a normal bilirubin. She was improved with IV fluids, bowel rest, and analgesics in the ED. she was seen by General surgery, we will undergo cholecystectomy and a cholangiogram today. She denies any nausea, or vomiting, no recent diarrhea, or blood per rectum. She has had at least 1 or 2 of these episodes in the past which are consistent with gallbladder attacks. She was adopted, does not know of any family history of gallbladder issues. [facility] Medical History (Updated 07/17/24 @ 12:56 by Candelario Lewis MD) Biliary acute pancreatitis Surgical History History of breast augmentation Status post colonoscopy Status post colonoscopy (10/11/14) Social History household members: spouse Smoking Status: Never smoker Meds Home Medications and Allergies Home Medications Medication Instructions Recorded Confirmed Type No Known Home Medications 07/17/24 07/17/24 History Allergies Allergy/AdvReac Type Severity Reaction Status Date / Time Sulfa (Sulfonamide Allergy Severe RASH Verified 07/16/24 17:01 Antibiotics) [SULFA (SULFONAMIDE ANTIBIOTICS)] Review of Systems Review of Systems Narrative: All else reviewed and otherwise unremarkable except as noted in the history and physical. Exam Vital Signs (past 8 hours): - 07/17/24 05:30 07/17/24 06:00 07/17/24 06:30 Pulse Rate 67 67 71 Respiratory Rate 13 13 14 Blood Pressure Pulse Oximetry Oxygen Delivery Method 07/17/24 07:00 07/17/24 08:05 07/17/24 08:06 Pulse Rate 71 69 69 Respiratory Rate 14 Blood Pressure Pulse Oximetry 96 96 Oxygen Delivery Method 07/17/24 08:06 07/17/24 08:07 07/17/24 09:11 Pulse Rate 69 Respiratory Rate 18 Blood Pressure 97/55 L 97/55 L 86/50 L Pulse Oximetry 96 Oxygen Delivery Method Room Air 07/17/24 09:30 07/17/24 10:00 07/17/24 10:05 Pulse Rate Respiratory Rate Blood Pressure 90/50 L 85/47 L 86/49 L Pulse Oximetry Oxygen Delivery Method 07/17/24 10:30 07/17/24 11:00 07/17/24 11:05 Pulse Rate 64 Respiratory Rate Blood Pressure 89/53 L 87/50 L Pulse Oximetry 97 Oxygen Delivery Method 07/17/24 11:25 07/17/24 11:25 Pulse Rate 65 Respiratory Rate Blood Pressure 93/51 L Pulse Oximetry 98 Oxygen Delivery Method Oxygen Delivery Method Room Air Narrative Exam Narrative: NAD, alert and oriented, fluent speech, calm. Normocephalic skull, EOMI, anicteric sclera, symmetric pupils. Oropharynx unremarkable, no droop. Neck supple, midline trachea, no adenopathy. Lungs clear, normal rate and effort. Heart regular, no murmur gallop or rub. Abdomen is soft, non distended and notable for epigastric tenderness without guarding or rebound. Extremities are free of edema. Skin is free of rash or lesions. Joints are not swollen or deformed. Judgment appears to be normal. Objective ECG Impression: Normal sinus rhythm Imaging Multiple studies:: Radiologist's impression: Abdomen MRI: Cholelithiasis. Questionable sludge versus small gallstones at the distal CBD, which is technically not distended. Correlate LFTs and possible ERCP. This is seen on series 3/16, but not confirmed on other sequences due to motion artifact Moderate edema surrounding pancreas tail and left upper quadrant, correlate lipase for pancreatitis. Abdomen ultrasound: 1. Cholelithiasis. No definite sonographic evidence of acute cholecystitis. Questionable trace amount of pericholecystic fluid versus small amount of ascites fluid in the gallbladder fossa. 2. Mildly dilatation of common bile duct measures up to 8.2 mm in diameter. No gross choledocholithiasis. Chest x-ray: No acute cardiopulmonary abnormality is seen. Labs 07/17/24 08:00 07/17/24 08:00 Labs: Laboratory Results - last 24 hr 07/16/24 07/16/24 07/16/24 17:05 18:18 19:14 WBC 12.1 H RBC 4.69 Hgb 13.9 Hct 41.4 MCV 88.3 MCH 29.5 MCHC 33.4 RDW 13.8 Plt Count 287 Neut % (Auto) 68.1 Lymph % (Auto) 24.6 L [place] % (Auto) 5.3 Eos % (Auto) 1.6 L Baso % (Auto) 0.4 Neut # (Auto) 8300 H Lymph # (Auto) 3000 [place] # (Auto) 600 Eos # (Auto) 200 Baso # (Auto) 100 PT 11.2 INR 1.0 APTT 37 H Sodium 140 Potassium 3.4 Chloride 103 Carbon Dioxide 30 BUN 18 H Creatinine 0.79 Estimated GFR > 60 BUN/Creatinine Ratio 22.8 H Glucose 94 Calcium 9.2 Magnesium 2.1 Total Bilirubin 0.8 AST 247 H ALT 277 H Alkaline Phosphatase 182 H Total Creatine Kinase 86 Troponin I < 0.012 NT-Pro-B Natriuret Pep 35 Total Protein 7.8 Albumin 4.7 Globulin 3.1 Albumin/Globulin Ratio 1.5 Lipase 86687 H Urine RBC None seen Urine WBC 5-10/hpf H Ur Squamous Epith Cells 5-10 /hpf H Urine Bacteria Few (2-10) H Ur Culture Indicated? Specimen cultured Vol Urine Centrifuged 10ml (spun) Acetaminophen < 10 Ethyl Alcohol < 10 07/17/24 08:00 WBC 9.9 RBC 3.92 L Hgb 11.8 L Hct 34.8 L MCV 88.6 MCH 30.2 MCHC 34.1 RDW 13.5 Plt Count 243 Neut % (Auto) 75.0 Lymph % (Auto) 18.3 L [place] % (Auto) 5.8 Eos % (Auto) 0.6 L Baso % (Auto) 0.3 Neut # (Auto) 7500 H Lymph # (Auto) 1800 [place] # (Auto) 600 Eos # (Auto) 100 Baso # (Auto) 0 PT INR APTT Sodium 136 L Potassium 3.7 Chloride 109 H Carbon Dioxide 22 BUN 14 Creatinine 0.62 Estimated GFR > 60 BUN/Creatinine Ratio 22.6 H Glucose 98 Calcium 8.3 L Magnesium Total Bilirubin 0.9 AST 180 H ALT 300 H Alkaline Phosphatase 161 H Total Creatine Kinase Troponin I NT-Pro-B Natriuret Pep Total Protein 6.1 L Albumin 3.7 Globulin 2.4 Albumin/Globulin Ratio 1.5 Lipase 8838 H D Urine RBC Urine WBC Ur Squamous Epith Cells Urine Bacteria Ur Culture Indicated? Vol Urine Centrifuged Acetaminophen Ethyl Alcohol Assessment & Plan Assessment & Plan narrative: 1. Cholelithiasis, present on admission and active. 2. Possible cholangitis, present on admission and active. 3. Gallstone induced pancreatitis, present on admission and improving. PLAN: -NPO -IV fluids and IV Zosyn -trend LFTs -general surgery consult, anticipate cholecystectomy today for cholelithiasis. Anticipate intraoperative cholangiogram, her bilirubin is normal. CHANDANA: 07/18 or 12 depending on her abdominal pain and ability advance diet. Full resuscitation Proxy is her , they live in [place]. Anticipate a 2nd midnight of hospital level surfaces, she was initially seen in the emergency department on the evening of July 16. Time-Based Coding :: 35 min spent with patient and on the chart (including review of chart, obtaining history, exam, reviewing outside data, placing orders, documenting exam and treatment plan, and counseling patient) on 07/17/2024. Quality MIPS - Admit I confirm the patient?s Advance Care Plan is present, Code status is documented, Surrogate decision maker is in patient?s record [If Yes, STOP here]: Yes MIPS - Meds 'Current medications' to include all prescriptions, [id number] products, herbals, cannabis/cannabidiol products, and vitamin/mineral/dietary (nutritional) supplements. I have utilized all available resources to obtain, update, or review the patient?s current medications. [If Yes, STOP here]: Yes
--- NOTE | 2024-07-17 12:54 | P.CONS_ITS ---
History of Present Illness Consult details Date Patient Seen: 07/17/24 Time Patient Seen: 12:54 Chief complaint: thinks is having a heart attack Reason for consult: Biliary pancreatitis Requesting provider: Chance Serra Narrative: This is a 63-year-old white female who had epigastric/chest pain causing her come to the ER. She was found to have mildly elevated LFTs in gallstones consistent with biliary pancreatitis. She thinks she had a similar episode 2 months ago. She is otherwise healthy. She had a laparoscopic appendectomy and a robotic retroperitoneal mass excision at another facility. Meds Home Medications and Allergies Allergies Allergy/AdvReac Type Severity Reaction Status Date / Time Sulfa (Sulfonamide Allergy Severe RASH Verified 07/16/24 17:01 Antibiotics) [SULFA (SULFONAMIDE ANTIBIOTICS)] Review of Systems Review of Systems ROS: Yes All systems reviewed with the patient and are negative except as otherwise documented Exam Vital Signs (past 8 hours): - 07/17/24 05:30 07/17/24 06:00 07/17/24 06:30 Pulse Rate 67 67 71 Respiratory Rate 13 13 14 Blood Pressure Pulse Oximetry Oxygen Delivery Method 07/17/24 07:00 07/17/24 08:05 07/17/24 08:06 Pulse Rate 71 69 69 Respiratory Rate 14 Blood Pressure Pulse Oximetry 96 96 Oxygen Delivery Method 07/17/24 08:06 07/17/24 08:07 07/17/24 09:11 Pulse Rate 69 Respiratory Rate 18 Blood Pressure 97/55 L 97/55 L 86/50 L Pulse Oximetry 96 Oxygen Delivery Method Room Air 07/17/24 09:30 07/17/24 10:00 07/17/24 10:05 Pulse Rate Respiratory Rate Blood Pressure 90/50 L 85/47 L 86/49 L Pulse Oximetry Oxygen Delivery Method 07/17/24 10:30 07/17/24 11:00 07/17/24 11:05 Pulse Rate 64 Respiratory Rate Blood Pressure 89/53 L 87/50 L Pulse Oximetry 97 Oxygen Delivery Method 07/17/24 11:25 07/17/24 11:25 07/17/24 11:30 Pulse Rate 65 Respiratory Rate Blood Pressure 93/51 L 89/50 L Pulse Oximetry 98 Oxygen Delivery Method 07/17/24 11:30 07/17/24 12:00 07/17/24 12:00 Pulse Rate 60 61 Respiratory Rate Blood Pressure 97/61 Pulse Oximetry 97 97 Oxygen Delivery Method 07/17/24 12:30 07/17/24 12:30 Pulse Rate 62 Respiratory Rate Blood Pressure 92/53 L Pulse Oximetry 97 Oxygen Delivery Method Oxygen Delivery Method Room Air Narrative Exam Narrative: Gen: NAD, sitting comfortably in bed, appears well HEENT: Sclera are anicteric, head is normocephalic and atraumatic, trachea is midline. CV: RRR, no JVD Resp: clear to auscultation bilaterally, equal chest wall movement bilaterally Abd: soft, nontender, normoactive bowel sounds Ext: no edema, full range of motion Neuro: Cranial nerves II-XII grossly intact, no focal deficits Skin: No erythema or ecchymosis Objective Imaging MRI - abdomen: My impression: Reviewed by me, no significant choledocholithiasis that would make me believe ERCP would be beneficial prior to laparoscopic cholecystectomy. Labs 07/17/24 08:00 07/17/24 08:00 Labs: Laboratory Results - last 24 hr 07/16/24 07/16/24 07/16/24 17:05 18:18 19:14 WBC 12.1 H RBC 4.69 Hgb 13.9 Hct 41.4 MCV 88.3 MCH 29.5 MCHC 33.4 RDW 13.8 Plt Count 287 Neut % (Auto) 68.1 Lymph % (Auto) 24.6 L [place] % (Auto) 5.3 Eos % (Auto) 1.6 L Baso % (Auto) 0.4 Neut # (Auto) 8300 H Lymph # (Auto) 3000 [place] # (Auto) 600 Eos # (Auto) 200 Baso # (Auto) 100 PT 11.2 INR 1.0 APTT 37 H Sodium 140 Potassium 3.4 Chloride 103 Carbon Dioxide 30 BUN 18 H Creatinine 0.79 Estimated GFR > 60 BUN/Creatinine Ratio 22.8 H Glucose 94 Calcium 9.2 Magnesium 2.1 Total Bilirubin 0.8 AST 247 H ALT 277 H Alkaline Phosphatase 182 H Total Creatine Kinase 86 Troponin I < 0.012 NT-Pro-B Natriuret Pep 35 Total Protein 7.8 Albumin 4.7 Globulin 3.1 Albumin/Globulin Ratio 1.5 Lipase 51695 H Urine RBC None seen Urine WBC 5-10/hpf H Ur Squamous Epith Cells 5-10 /hpf H Urine Bacteria Few (2-10) H Ur Culture Indicated? Specimen cultured Vol Urine Centrifuged 10ml (spun) Acetaminophen < 10 Ethyl Alcohol < 10 07/17/24 08:00 WBC 9.9 RBC 3.92 L Hgb 11.8 L Hct 34.8 L MCV 88.6 MCH 30.2 MCHC 34.1 RDW 13.5 Plt Count 243 Neut % (Auto) 75.0 Lymph % (Auto) 18.3 L [place] % (Auto) 5.8 Eos % (Auto) 0.6 L Baso % (Auto) 0.3 Neut # (Auto) 7500 H Lymph # (Auto) 1800 [place] # (Auto) 600 Eos # (Auto) 100 Baso # (Auto) 0 PT INR APTT Sodium 136 L Potassium 3.7 Chloride 109 H Carbon Dioxide 22 BUN 14 Creatinine 0.62 Estimated GFR > 60 BUN/Creatinine Ratio 22.6 H Glucose 98 Calcium 8.3 L Magnesium Total Bilirubin 0.9 AST 180 H ALT 300 H Alkaline Phosphatase 161 H Total Creatine Kinase Troponin I NT-Pro-B Natriuret Pep Total Protein 6.1 L Albumin 3.7 Globulin 2.4 Albumin/Globulin Ratio 1.5 Lipase 8838 H D Urine RBC Urine WBC Ur Squamous Epith Cells Urine Bacteria Ur Culture Indicated? Vol Urine Centrifuged Acetaminophen Ethyl Alcohol PFSH Medical History (Updated 07/17/24 @ 12:56 by Candelario Lewis MD) Biliary acute pancreatitis Surgical History History of breast augmentation Status post colonoscopy Status post colonoscopy (10/11/14) Tobacco & Substance Use Smoking Status: Never smoker Assessment & Plan Assessment and plan (1) Biliary acute pancreatitis: Status: Acute Assessment & Plan narrative: Risks, benefits alternatives to laparoscopic cholecystectomy with cholangiography were explained to the patient including but not limited to retained stones and bile leak with the potential need for ERCP. Patient agrees to proceed with laparoscopic cholecystectomy with cholangiography, possible common bile duct exploration. Time-Based Coding :: [TOTAL MINUTES] spent with patient and on the chart (including review of chart, obtaining history, exam, reviewing outside data, placing orders, documenting exam and treatment plan, and counseling patient) on [DATE]. PROFEE Charge Codes Inpatient or Observation consultation: 22195 (Modifier-57)
[2024-07-17] MEDS: DEXTROSE 5%-0.9% NS 1,000 ML 100 ML IV (14:06)
[2024-07-17] MEDS: LACTATED RINGERS 1,000 ML 42 ML IV (14:49)
[2024-07-17] MEDS: CEFAZOLIN VIAL 1 GM in SODIUM CHLORIDE 0.9% 100 ML IV ×2 (15:45→15:56)
[2024-07-17] MEDS: ACETAMINOPHEN IV 1,000 MG/100 ML VIAL 400 MG IV (16:00)
[2024-07-17] MEDS: iopamidoL 30 ML VIAL INJ (16:06)
--- NOTE | 2024-07-17 16:29 | PM.OP.1 ---
Operative Date/Time/Diagnoses Date of procedure: 07/17/24 Time of procedure: 16:29 Pre-op diagnosis: Biliary pancreatitis Post-op diagnosis: same Procedure & Clinicians Procedure: Laparoscopic cholecystectomy with cholangiography Same procedure as scheduled: Yes Indications: Biliary pancreatitis Surgeon: Candelario Lewis Click Yes if Unassisted: Yes Anesthesia Type: General Operative Notes Findings: Free-flowing contrast into the duodenal with retrograde filling of bilateral intrahepatic ducts and pancreatic duct Closure Type: primary Specimen(s): other (Gallbladder and contents) Estimated Blood Loss (mL): 10 Procedure in detail: Patient was seen and evaluated in the ER and deemed to have biliary pancreatitis. Patient is a nondrinker. Risks, benefits, and alternatives were explained and patient agreed to proceed with laparoscopic cholecystectomy with cholangiography. Patient was brought to the operating room suite. Time-out was performed. General anesthesia was induced. The abdomen was prepped and draped in usual fashion with the arms out in the supine position. A total of 30 mL of 0.5% Marcaine were infiltrated in all trocar sites. A left upper quadrant optical trocar was placed in the abdomen was insufflated. There were adhesions to the anterior abdominal wall with a fat containing hernia from her previous robotic surgery. This fat was reduced and the hernia was left alone. An 11 mm trocar was placed below the umbilicus. Two 5 mm trocar was placed in the upper quadrant. The gallbladder was grasped and retracted laterally and cephalad. Bovie electrocautery was used and used to open the medial and lateral attachments of the gallbladder revealing a single cystic duct and single cystic artery. The artery was doubly clipped and divided. A clip was placed at the junction of the gallbladder infundibulum and the duct. A cystic ductotomy was made through which a cholangiogram catheter was placed. Contrast was injected under fluoroscopy which showed prompt emptying into the duodenal, a mildly dilated common duct without obvious filling defect, bilateral filling of the intrahepatic ducts and filling of the pancreatic duct. As there was no obvious defect, stricture noted this completed the cholangiography. Three clips were then placed on the cystic duct stump. Bovie electrocautery was used to remove the gallbladder from the liver bed brought out through an Endo-Catch bag through the umbilical trocar. The umbilical trocar was closed with an 0 Vicryl on a Hussain-Harrison suture Passer. Skin was closed with 4-0 Monocryl and Dermabond. Patient tolerated procedure well was transferred to PACU in stable condition for an be returned to her hospital bed. Complications: none Post-operative Condition: stable Disposition: PACU Plan for aftercare: Continued admission
[2024-07-17] MEDS: ONDANSETRON 4 MG/2 ML INJ IV (16:52)
[2024-07-17] MEDS: HYDROMORPHONE 2 MG INJ 0.5 MG IV (16:56)
[2024-07-17] MEDS: OXYCODONE IR 5 MG TABLET PO ×2 (16:57→17:10)
[2024-07-17] MEDS: PIPERACILLIN/TAZO 3.375 GM in SODIUM CHLORIDE 0.9% 100 ML IV (18:11)
--- NOTE | 2024-07-17 18:22 | PC.NURSE ---
Patient arrived from ED at approximately 1330, and then shortly after she was transferred to [facility] for cholecystecomy. She returned to room 209 at approximately 1730 this evening. She is able to tolerate a general diet meal tray, but c\o gas pain to abdomen and headache. Lap sites x4 with dermabond on abdomen. Continuous monitoring, POST OP VS, bed alarm, call light and belongings in reach.
[2024-07-18] MEDS: OXYCODONE IR 5 MG TABLET PO (00:53)
[2024-07-18] MEDS: PIPERACILLIN/TAZO 3.375 GM in SODIUM CHLORIDE 0.9% 100 ML IV (02:21)
[2024-07-18 02:36] LABS: HBsAg Screen Negative (Negative); Hepatitis A Antibody IgM Negative (Negative); Hepatitis B Core Antibody IgM Negative (Negative); Hepatitis C Antibody Non Reactive (Non Reactive)
[2024-07-18] MEDS: HYDROMORPHONE 0.5 MG INJ IV ×2 (05:05→09:13)
[2024-07-18 05:52] LABS: Add Manual Diff / Slide Review NO; Basophils Absolute Auto 0 /uL (0-100); Basophils Percent Auto 0.3 % (0-2); Eosinophils Absolute Auto 0 /uL (0-450); Eosinophils Percent Auto 0.2 % (2-4); Hematocrit 33.2 % (36-46); Hemoglobin 11.3 g/dL (12.0-16.0); Lymphocytes Absolute Auto 1100 /uL (1100-4500); Lymphocytes Percent Auto 11.6 % (25-40); Mean Corpuscular Hemoglobin 30.3 PG (26-34); Mean Corpuscular Volume 89.2 fL (80-100); Monocytes Absolute Auto 600 /uL (0-900); Monocytes Percent Auto 6.1 % (3-14); Neutrophils Absolute Auto 8000 /uL (1500-7000); Neutrophils Percent Auto 81.8 % (50-75); Platelet Count 211 X10^3/uL (150-400); Red Blood Cell Count 3.72 X10^6/uL (4.0-5.2); Red Cell Distribution Width 13.8 % (11.6-14.8); White Blood Cell Count 9.8 X10^3/uL (4.5-11.0)
[2024-07-18 06:06] LABS: Alanine Aminotransferase 255 IU/L (<35); Albumin 3.6 g/dL (3.5-5.0); Albumin Globulin Ratio 1.4 (1.0-2.8); Alkaline Phosphatase 216 U/L (38-126); Aspartate Aminotransferase 156 IU/L (14-36); BUN Creatinine Ratio 16.4 (6-22); Bilirubin Total 3.9 mg/dL (0.2-1.3); Blood Urea Nitrogen 11 mg/dL (7-17); Calcium 8.6 mg/dL (8.4-10.2); Carbon Dioxide 23 mmol/L (22-32); Chloride 105 mmol/L (98-107); Estimated Glomerular Filt Rate > 60 mL/min (>60); Globulin 2.6 g/dL (1.7-4.1); Glucose 108 mg/dL (80-110); HEMOLYSIS < 15 (0-50); Potassium 3.8 mmol/L (3.4-5.1); Sodium 134 mmol/L (137-145); Total Protein 6.2 g/dL (6.3-8.2)
[2024-07-18 06:45] LABS: Lipase 2686 U/L (23-300)
--- NOTE | 2024-07-18 07:53 | P.PN_ITS ---
Subjective Subjective Date Patient Seen: 07/18/24 Time Patient Seen: 07:53 Interval history: Patient is eager to have breakfast. She states she still has some of the pancreatitis type discomfort. We discussed that her bilirubin and pancreatic enzymes are still elevated today Exam Vital Signs (past 8 hours): Oxygen Delivery Method Room Air Oxygen Flow Rate 0 Narrative Exam Narrative: Incisions are clean, dry, intact. Objective Labs 07/18/24 05:20 07/18/24 05:20 Labs: Laboratory Results - last 24 hr 07/16/24 07/17/24 07/18/24 19:14 08:00 05:20 WBC 9.9 9.8 RBC 3.92 L 3.72 L Hgb 11.8 L 11.3 L Hct 34.8 L 33.2 L MCV 88.6 89.2 MCH 30.2 30.3 MCHC 34.1 34.0 RDW 13.5 13.8 Plt Count 243 211 Neut % (Auto) 75.0 81.8 H Lymph % (Auto) 18.3 L 11.6 L [place] % (Auto) 5.8 6.1 Eos % (Auto) 0.6 L 0.2 L Baso % (Auto) 0.3 0.3 Neut # (Auto) 7500 H 8000 H Lymph # (Auto) 1800 1100 [place] # (Auto) 600 600 Eos # (Auto) 100 0 Baso # (Auto) 0 0 Sodium 136 L 134 L Potassium 3.7 3.8 Chloride 109 H 105 Carbon Dioxide 22 23 BUN 14 11 Creatinine 0.62 0.67 Estimated GFR > 60 > 60 BUN/Creatinine Ratio 22.6 H 16.4 Glucose 98 108 Calcium 8.3 L 8.6 Total Bilirubin 0.9 3.9 H AST 180 H 156 H ALT 300 H 255 H Alkaline Phosphatase 161 H 216 H Total Protein 6.1 L 6.2 L Albumin 3.7 3.6 Globulin 2.4 2.6 Albumin/Globulin Ratio 1.5 1.4 Lipase 8838 H D 2686 H D Hepatitis A IgM Ab Negative Hep Bs Antigen Negative Hep B Core IgM Ab Negative Hepatitis C Antibody Non reactive Hep C Ab Signal/Cutoff Comment [facility] Medical History (Updated 07/17/24 @ 12:56 by Candelario Lewis MD) Biliary acute pancreatitis Surgical History History of breast augmentation Status post colonoscopy Status post colonoscopy (10/11/14) Social History household members: spouse Smoking Status: Never smoker Assessment & Plan Post-op Postoperative Procedures: Procedures Operation Date: 07/17/24 15:45 Actual Procedure Side Surgeon p Laparoscopic Cholecystectomy with IOC Candelario Lewis MD Postoperative day: 1 Postoperative status narrative: Doing well, we will await improvement of her laboratory values prior to discharge. Cholangiogram was clear yesterday with free flow into the duodenal so the elevated bilirubin may just be secondary to sphincter spasm. We will need to be rechecked and improving prior to discharge Time Spent With Patient Time with patient: less than 15 minutes
[2024-07-18 08:00] VITALS: BP 101/62; PULSE 73; RESP 16; TEMP 36.4; O2SAT 92
--- NOTE | 2024-07-18 10:43 | CM.DANOTE ---
B DCP Assessment Note Pt is a 63yo F POD1 from [facility] with Dr. Lewis, also followed by hospitalist team. PCP Fawn Ricoer Ar and self pay. CAR SALTER reviewed EMR. per chart review, pt lives indep with spouse megha in [place]. Per RN notes, tolerating general diet, ambulating in room. Per hospitalist in morning rounds, anticipate dc Saturday with no anticipated DCP/CM needs. pending labs. P: anticipate dc home with spouse when medically stable with OP f/u likely recommended. no identified barriers to safe dc home at this time. CM team will continue to follow as needed GAEL Meek Discharge Planning/Care Management CM Discharge Assessment Start: 07/18/24 10:41 Freq: Status: Active Protocol: Document 07/18/24 10:41 (Rec: 07/18/24 10:43 [id number]) Discharge Planning Assessment Assigned [employer] GAEL Lopez DPOA/Assigned Designee Name Megha, spouse Contact Information [phone] Advance Directives? No Prior Living Arrangements House Household Members spouse Type of transporation used prior to Drives own vehicle admit Independent with ADL's Yes Is patient alert and oriented? Yes Barriers to Discharge No Discharge Plan Home Referrals Initiated None needed Review Status In Process Please Provide Date Initial DC 07/18/24 Assessment Was Performed Next Review Type Continued Stay Review
[2024-07-18 12:00] VITALS: BP 110/66; PULSE 77; RESP 14; TEMP 36.9; O2SAT 95
[2024-07-18] MEDS: polyethylene glycoL 3350 17 GM POWD.PACK PO (12:24)
--- NOTE | 2024-07-18 13:46 | P.PN_ITS ---
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 She presents today with epigastric abdominal pain consistent with a gallbladder attack which began yesterday but failed to improve. She developed progressive epigastric abdominal pain and was worried about a heart attack. In the ED she was found to have a significant elevation of her lipase consistent with gallstone pancreatitis. She also had elevated transaminases and a normal bilirubin. She was improved with IV fluids, bowel rest, and analgesics in the ED. she was seen by General surgery, we will undergo cholecystectomy and a cholangiogram today. She denies any nausea, or vomiting, no recent diarrhea, or blood per rectum. She has had at least 1 or 2 of these episodes in the past which are consistent with gallbladder attacks. She was adopted, does not know of any family history of gallbladder issues. Interval history: Patient underwent laparoscopic cholecystectomy last night. She is feeling better but has moderate abdominal pain and has not passed flatus or had a bowel movement. Exam Vital Signs (past 8 hours): - 07/18/24 08:00 07/18/24 12:00 Temperature 97.5 F L 98.4 F Pulse Rate 73 77 Respiratory Rate 16 14 Blood Pressure 101/62 110/66 Pulse Oximetry 92 95 Oxygen Flow Rate 0 0 Oxygen Delivery Method Room Air Oxygen Flow Rate 0 Narrative Exam Narrative: NAD, alert and oriented, fluent speech, calm. Normocephalic skull, EOMI, anicteric sclera, symmetric pupils. Oropharynx unremarkable, no droop. Neck supple, midline trachea, no adenopathy. Lungs clear, normal rate and effort. Heart regular, no murmur gallop or rub. Abdomen is soft, non distended, mildly tender, port sites without erythema, bleeding or discharge. Extremities are free of edema. Skin is free of rash or lesions. Joints are not swollen or deformed. Judgment appears to be normal. Objective Labs 07/18/24 05:20 07/18/24 05:20 Labs: Laboratory Results - last 24 hr 07/16/24 07/18/24 19:14 05:20 WBC 9.8 RBC 3.72 L Hgb 11.3 L Hct 33.2 L MCV 89.2 MCH 30.3 MCHC 34.0 RDW 13.8 Plt Count 211 Neut % (Auto) 81.8 H Lymph % (Auto) 11.6 L [place] % (Auto) 6.1 Eos % (Auto) 0.2 L Baso % (Auto) 0.3 Neut # (Auto) 8000 H Lymph # (Auto) 1100 [place] # (Auto) 600 Eos # (Auto) 0 Baso # (Auto) 0 Sodium 134 L Potassium 3.8 Chloride 105 Carbon Dioxide 23 BUN 11 Creatinine 0.67 Estimated GFR > 60 BUN/Creatinine Ratio 16.4 Glucose 108 Calcium 8.6 Total Bilirubin 3.9 H AST 156 H ALT 255 H Alkaline Phosphatase 216 H Total Protein 6.2 L Albumin 3.6 Globulin 2.6 Albumin/Globulin Ratio 1.4 Lipase 2686 H D Hepatitis A IgM Ab Negative Hep Bs Antigen Negative Hep B Core IgM Ab Negative Hepatitis C Antibody Non reactive Hep C Ab Signal/Cutoff Comment [facility] Medical History (Updated 07/17/24 @ 12:56 by Candelario Lewis MD) Biliary acute pancreatitis Surgical History History of breast augmentation Status post colonoscopy (10/11/14) Status post colonoscopy Social History household members: spouse Smoking Status: Never smoker Assessment & Plan Assessment & Plan narrative: 1. Cholelithiasis, present on admission and active, status post laparoscopic cholecystectomy with cholangiography 07/17/2024. 2. Possible cholangitis, present on admission and active. Bilirubin elevated today. Monitor. 3. Gallstone induced pancreatitis, present on admission and improving. PLAN: -advance diet per surgery -IV fluids and IV Zosyn -trend LFTs CHANDANA: 07/19 depending on her liver tests, abdominal pain and ability advance diet. Full resuscitation Proxy is her , they live in [place]. Anticipate a 2nd midnight of hospital level surfaces, she was initially seen in the emergency department on the evening of July 16. PROFEE Charge codes Subsequent inpatient/observation care: [id number]
[2024-07-18] MEDS: ACETAMINOPHEN 325 MG TABLET 650 MG PO (14:47)
--- NOTE | 2024-07-18 17:39 | PC.NURSE ---
Addendum entered by Wolf Blanco R.N. 07/18/24 19:00: Discussed with Dr. Lewis about Pt's request to use her Symplex F supplement that she uses at home to help with her AGARWAL. Will hold off presently per Dr. Lewis. Suggested Pt speak with Dr. Lewis in the morning. Original Note: Rec'd report from and assumed care of Pt. Pt c/o AGARWAL. gave Pt tylenol and a cool compress for her head before she left. Pt restful and not requiring further intervention other than dim lights and quiet.
[2024-07-18 18:00] VITALS: BP 108/59; PULSE 74; RESP 16; TEMP 36.9; O2SAT 95
[2024-07-18 20:09] VITALS: BP 123/69; PULSE 73; RESP 19; TEMP 37; O2SAT 96
[2024-07-19] MEDS: TIZANIDINE 4 MG TABLET PO (02:19)
[2024-07-19 05:07] VITALS: BP 130/78; PULSE 74; RESP 19; TEMP 37; O2SAT 96
[2024-07-19 06:24] LABS: Add Manual Diff / Slide Review NO; Basophils Absolute Auto 0 /uL (0-100); Basophils Percent Auto 0.4 % (0-2); Eosinophils Absolute Auto 200 /uL (0-450); Eosinophils Percent Auto 2.1 % (2-4); Hematocrit 32.8 % (36-46); Hemoglobin 11.2 g/dL (12.0-16.0); Lymphocytes Absolute Auto 1000 /uL (1100-4500); Lymphocytes Percent Auto 11.2 % (25-40); Mean Corpuscular Hemoglobin 30.3 PG (26-34); Mean Corpuscular Volume 88.9 fL (80-100); Monocytes Absolute Auto 700 /uL (0-900); Monocytes Percent Auto 8.3 % (3-14); Neutrophils Absolute Auto 6900 /uL (1500-7000); Platelet Count 206 X10^3/uL (150-400); Red Blood Cell Count 3.69 X10^6/uL (4.0-5.2); Red Cell Distribution Width 13.6 % (11.6-14.8); White Blood Cell Count 8.8 X10^3/uL (4.5-11.0)
[2024-07-19 06:42] LABS: Alanine Aminotransferase 191 IU/L (<35); Albumin 3.5 g/dL (3.5-5.0); Albumin Globulin Ratio 1.3 (1.0-2.8); Alkaline Phosphatase 215 U/L (38-126); Aspartate Aminotransferase 91 IU/L (14-36); BUN Creatinine Ratio 11.1 (6-22); Bilirubin Total 3.8 mg/dL (0.2-1.3); Blood Urea Nitrogen 5 mg/dL (7-17); Calcium 8.3 mg/dL (8.4-10.2); Carbon Dioxide 27 mmol/L (22-32); Chloride 102 mmol/L (98-107); Estimated Glomerular Filt Rate > 60 mL/min (>60); Globulin 2.8 g/dL (1.7-4.1); Glucose 118 mg/dL (80-110); HEMOLYSIS < 15 (0-50); Potassium 3.7 mmol/L (3.4-5.1); Sodium 134 mmol/L (137-145); Total Protein 6.3 g/dL (6.3-8.2)
[2024-07-19 08:31] VITALS: BP 100/57; PULSE 70; RESP 17; TEMP 36.6; O2SAT 98
--- NOTE | 2024-07-19 09:58 | PM.PNPO.1 ---
Subjective Subjective Date Patient Seen: 07/19/24 Time Patient Seen: 09:58 Interval history: Patient states she feels somewhat better today and like to eat lunch. Bilirubin has come down slightly from yesterday. Exam Vital Signs (past 8 hours): - 07/19/24 05:07 07/19/24 08:31 Temperature 98.6 F 97.8 F Pulse Rate 74 70 Respiratory Rate 19 17 Blood Pressure 130/78 100/57 L Pulse Oximetry 96 98 Oxygen Flow Rate 0 0 Oxygen Delivery Method Room Air Oxygen Flow Rate 0 Narrative Exam Narrative: Resting comfortably, incision clean dry intact Objective Labs 07/19/24 06:02 07/19/24 06:02 Labs: Laboratory Results - last 24 hr 07/19/24 06:02 WBC 8.8 RBC 3.69 L Hgb 11.2 L Hct 32.8 L MCV 88.9 MCH 30.3 MCHC 34.0 RDW 13.6 Plt Count 206 Neut % (Auto) 78.0 H Lymph % (Auto) 11.2 L [place] % (Auto) 8.3 Eos % (Auto) 2.1 Baso % (Auto) 0.4 Neut # (Auto) 6900 Lymph # (Auto) 1000 L [place] # (Auto) 700 Eos # (Auto) 200 Baso # (Auto) 0 Sodium 134 L Potassium 3.7 Chloride 102 Carbon Dioxide 27 BUN 5 L Creatinine 0.45 L Estimated GFR > 60 BUN/Creatinine Ratio 11.1 Glucose 118 H Calcium 8.3 L Total Bilirubin 3.8 H AST 91 H ALT 191 H Alkaline Phosphatase 215 H Total Protein 6.3 Albumin 3.5 Globulin 2.8 Albumin/Globulin Ratio 1.3 PFSH Medical History (Updated 07/17/24 @ 12:56 by Candelario Lewis MD) Biliary acute pancreatitis Surgical History History of breast augmentation Status post colonoscopy Status post colonoscopy (10/11/14) Social History household members: spouse Smoking Status: Never smoker Assessment & Plan Post-op Postoperative Procedures: Procedures Operation Date: 07/17/24 15:45 Actual Procedure Side Surgeon p Laparoscopic Cholecystectomy with IOC Candelario Lewis MD Postoperative day: 2 Postoperative status narrative: Okay for discharge today.
--- NOTE | 2024-07-19 11:32 | P.DS_ITS ---
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 She presents today with epigastric abdominal pain consistent with a gallbladder attack which began yesterday but failed to improve. She developed progressive epigastric abdominal pain and was worried about a heart attack. In the ED she was found to have a significant elevation of her lipase consistent with gallstone pancreatitis. She also had elevated transaminases and a normal bilirubin. She was improved with IV fluids, bowel rest, and analgesics in the ED. she was seen by General surgery, we will undergo cholecystectomy and a cholangiogram today. She denies any nausea, or vomiting, no recent diarrhea, or blood per rectum. She has had at least 1 or 2 of these episodes in the past which are consistent with gallbladder attacks. She was adopted, does not know of any family history of gallbladder issues. Discharge Providers Provider Date of admission: 07/17/24 11:33 Discharge Date: 07/19/24 Primary care physician: Fawn Puente MD Discharge provider: Gerardo Mcclain MD Summary Hospital Course Discharge Diagnosis: 1. Acute gallstone pancreatitis, status post laparoscopic cholecystectomy with cholangiography 07/17/2024 Hospital Course: The patient was admitted and General surgery consulted. She underwent laparoscopic cholecystectomy with unremarkable cholangiography. She had an unremarkable postoperative course, with liver function tests improving and diet advancing. She was cleared by surgery for discharge. No other issues arose. Status at Discharge Cognitive/behavioral status at discharge: oriented Functional status at discharge: independent ambulation Overall status at discharge: patient is progressing back to baseline Time Spent with Patient Time spent: Less than 30 minutes Exam Vital Signs (past 8 hours): - 07/19/24 05:07 07/19/24 08:31 Temperature 98.6 F 97.8 F Pulse Rate 74 70 Respiratory Rate 19 17 Blood Pressure 130/78 100/57 L Pulse Oximetry 96 98 Oxygen Flow Rate 0 0 Oxygen Delivery Method Room Air Oxygen Flow Rate 0 Narrative Exam Narrative: NAD, alert and oriented, fluent speech, calm. Normocephalic skull, EOMI, anicteric sclera, symmetric pupils. Oropharynx unremarkable, no droop. Neck supple, midline trachea, no adenopathy. Lungs clear, normal rate and effort. Heart regular, no murmur gallop or rub. Abdomen is soft, non distended, mildly tender, port sites without erythema, bleeding or discharge. Extremities are free of edema. Skin is free of rash or lesions. Joints are not swollen or deformed. Judgment appears to be normal. Objective Labs 07/19/24 06:02 07/19/24 06:02 Labs: Laboratory Results - last 24 hr 07/19/24 06:02 WBC 8.8 RBC 3.69 L Hgb 11.2 L Hct 32.8 L MCV 88.9 MCH 30.3 MCHC 34.0 RDW 13.6 Plt Count 206 Neut % (Auto) 78.0 H Lymph % (Auto) 11.2 L [place] % (Auto) 8.3 Eos % (Auto) 2.1 Baso % (Auto) 0.4 Neut # (Auto) 6900 Lymph # (Auto) 1000 L [place] # (Auto) 700 Eos # (Auto) 200 Baso # (Auto) 0 Sodium 134 L Potassium 3.7 Chloride 102 Carbon Dioxide 27 BUN 5 L Creatinine 0.45 L Estimated GFR > 60 BUN/Creatinine Ratio 11.1 Glucose 118 H Calcium 8.3 L Total Bilirubin 3.8 H AST 91 H ALT 191 H Alkaline Phosphatase 215 H Total Protein 6.3 Albumin 3.5 Globulin 2.8 Albumin/Globulin Ratio 1.3 PFSH Medical History Biliary acute pancreatitis Surgical History History of breast augmentation Status post colonoscopy (10/11/14) Status post colonoscopy Social History household members: spouse Smoking Status: Never smoker Discharge Plan Discharge Plan Patient Disposition: Home Provider Discharge Comment: Followup with Dr. Puente 1 week and Surgery as directed Discharge orders & Medications Prescriptions: New acetaminophen 325 mg Tablet 650 mg PO Q6H PRN (Reason: Fever/Mild Pain (1-3)) Qty: 30 0RF Follow up/Referrals: Fawn Puente MD [Primary Care Provider] - Visit Report/Discharge Packet Instructions: [facility]: Wound Care Stand Alone Forms: Patient Portal/API, Stroke Signs & Symptoms Discharge Data Primary Care Provider: Fawn Puente MIPS - Admit I confirm the patient?s Advance Care Plan is present, Code status is documented, Surrogate decision maker is in patient?s record [If Yes, STOP here]: Yes MIPS - Meds 'Current medications' to include all prescriptions, [id number] products, herbals, cannabis/cannabidiol products, and vitamin/mineral/dietary (nutritional) supplements. I have utilized all available resources to obtain, update, or review the patient?s current medications. [If Yes, STOP here]: Yes MIPS - DC The patient has a history of heart transplant or Left Ventricular Assist Device (LVAD). If yes, STOP here.: No The patient has current or prior documentation of left ventricular ejection fraction (LVEF) less than or equal to 40%, or moderate or severely depressed left ventricular systolic function.: No A. The patient was prescribed or already taking an Angiotensin-Converting Enzyme (TRICIA) Inhibitor, or Angiotensin Receptor Tino (ARB).: No B. The patient was prescribed or already taking a beta-tino. [If Yes to Both A & B, STOP here]: No Patient not prescribed/taking TRICIA or ARB, no reason given.: No Patient not prescribed/taking beta-tino, no reason given.: No [facility] PROFEE Charge Codes Discharge inpatient/observation: [id number]
[2024-07-19 16:55] LABS: Lipase 444 U/L (23-300)
== END 2024-07-19 13:10 | disposition home or self-care (01) | DRG 419 ==
LOC: ED 07-17 07:15 → AC 07-17 11:34
PROVIDERS: Emergency Medicine; Surgery; Admitting Provider Hospitalist; Emergency Provider Emergency Medicine; PCP Family Medicine; Referring Provider Emergency Medicine; Visit Provider Hospitalist
PROC: 0FT44ZZ Resection of Gallbladder, Percutaneous Endoscopic Approach (ICD-10-PCS; CPT 47563; principal; 2024-07-17 15:45)
DX: K85.10 Biliary acute pancreatitis without necrosis or infection (principal); K80.20 Calculus of gallbladder without cholecystitis without obstruction; Z90.49 Acquired absence of other specified parts of digestive tract
CPT/HCPCS: 36415; 47563; 71045; 74181; 74300; 76705; 80053; 80074; 80320; 80329; 81003; 81015; 82550; 83690; 83735; 83880; 84484; 85025; 85610; 85730; 87077; 87086; 87186; 93005; 93010; 96361; 96365; 96375; 96376; 99222; 99284; 99285; G0480; J0134; J0690; J1100; J1171; J1885; J2405; J2543; J2704; J3010; Q9967